=== PATIENT | male | born 1965 | race African-American/Black ===

== ENCOUNTER 2017-04-30 03:17 | Inpatient (IN) | payer MEDICAID ==
[2017-04-30] MEDS ORDERED: FUROSEMIDE INJ/PF 40 MG/4 ML SDV IV ONE (03:23)
--- NOTE | 2017-04-30 03:27 | ER Document Report ---
ED General - General Stated Complaint: DIFFICULTY BREATHING Time Seen by Provider: 04/30/17 03:23 Notes: Patient is a 52-year-old male with a history of cardiomyopathy and congestive heart failure. He presents with acute pulmonary edema. The medications he is on include spironolactone, lisinopril, carvedilol, Lasix, and aspirin. Dosages are not known at this time. No recent changes in his medications per his history. Patient said he woke up with difficulty breathing and felt gurgling and fluid in his chest. Therefore called EMS. I am survived patient was 80% on room air. They placed CPAP on him and given sublingual nitro and place an inch and a half of Nitropaste on him. This has helped his breathing some. He denies ever having chest pain tonight. He does have a defibrillator. He denies being shocked by his defibrillator. He denies history of cocaine use. He denies any other complaints at this time. He says he does not have any stents in his heart. Past Medical History - Social History Smoking Status: Unknown if Ever Smoked Frequency of alcohol use: None Drug Abuse: None Family History: Reviewed & Not Pertinent Review of Systems - Review of Systems Notes: My Normal Review Basic REVIEW OF SYSTEMS: CONSTITUTIONAL : Denies fever, chills, or sweats. Denies recent illness. EENT: Denies eye, ear, throat, or mouth pain or symptoms. Denies nasal or sinus congestion. CARDIOVASCULAR: Denies chest pain. RESPIRATORY: Difficulty breathing. GASTROINTESTINAL: Denies abdominal pain. Denies nausea, vomiting, or diarrhea. Denies constipation. Last BM: MUSCULOSKELETAL: Denies neck or back pain or joint pain or swelling. SKIN: Denies rash or skin lesions. NEUROLOGICAL: Denies altered mental status or loss of consciousness. Denies headache. Denies weakness or paralysis or loss of use of either side. Denies problems with gait or speech. Denies sensory or motor loss. ALL OTHER SYSTEMS REVIEWED AND NEGATIVE. Physical Exam - Vital signs Vitals: Resp Pulse Ox 30 H 96 04/30/17 03:26 04/30/17 03:26 - Notes Notes: General Appearance: Well nourished, alert, cooperative, mild to moderate acute distress, no obvious discomfort. Vitals: reviewed, See vital signs table. Head: no swelling or tenderness to the head Eyes: PERRL, EOMI, Conjuctiva clear Mouth: No decreasd moisture Lungs: No wheezing, basilar rales, No rhonci, No accessory muscle use, good air exchange bilaterally. Heart: Normal rate, Regular rythm, No murmur, no rub Abdomen: Normal BS, soft, No rigidity, No abdominal tenderness, No guarding, no rebound, no abdominal masses, no organomegaly Extremities: strength 5/5 in all extremities, good pulses in all extremities, no swelling or tenderness in the extremities, no edema. Skin: warm, dry, appropriate color, no rash Neuro: speech clear, oriented x 3, normal affect, responds appropriately to questions. Course - Re-evaluation Re-evalutation: 04/30/17 03:35 Patient has some EKG findings that look more consistent with that of LVH. Patient usually receives his care at [facility]. We will contact him to get old records including EKG, previous echo report, and most recent discharge summary. 04/30/17 04:22 She is feeling much improved. His lung kang have cleared on the BiPAP. Chest x-ray is not very impressive appearing. I do not suspect pneumonia that he has no white count illness, leukocytosis and being that his symptoms started suddenly. His lung auscultation presentation much more consistent with pulmonary edema. This is also more consistent with his history. We have requested records from [facility] which they have agreed to send. Patient clinically looks much improved. I does feel that he does require observation admission to eventually be weaned off the BiPAP and make sure he does not have recurrence of pulmonary edema. His initial troponin is 0.078 and is in the indeterminate range. He has no current chest pain at this time. I spoke with the hospitalist, Dr. Gordillo, who agrees to admit the patient. Dictation of this chart was performed using voice recognition software; therefore, there may be some unintended grammatical errors. - Vital Signs Vital signs: Temp Pulse Resp BP Pulse Ox 98.5 F 30 H 96 04/30/17 03:37 04/30/17 03:26 04/30/17 03:26 - Laboratory Result Diagrams: 04/30/17 03:23 04/30/17 03:23 Laboratory results interpreted by me: 04/30/17 04/30/17 04/30/17 03:23 03:23 03:23 RBC 3.70 L Hgb 11.3 L Hct 33.5 L RDW 15.7 H BUN 25 H Creatinine 1.71 H Est GFR ( Amer) 52 L Est GFR (Non-Af Amer) 43 L NT-Pro-B Natriuret Pep 85008 H - EKG Interpretation by Me Additional EKG results interpreted by me: 04/30/17 03:34 EKG is reviewed and interpreted by me. EKG shows normal sinus rhythm with rate of [address] segment elevation. She does have some large T- wave inversions and mild ST segment depression in her lateral and lateral precordial leads which most likely is result of LVH. I do not have an old EKG for comparison. [place] interval, QRS duration are within normal range. QTc interval is borderline. Discharge - Discharge Clinical Impression: Pulmonary edema Qualifiers: Chronicity: acute Qualified Code(s): J81.0 - Acute pulmonary edema CHF (congestive heart failure) Qualifiers: Heart failure type: unspecified Heart failure chronicity: acute on chronic Qualified Code(s): I50.9 - Heart failure, unspecified Condition: Stable Disposition: ADMITTED OBSERVATION Admitting Provider: Hospitalist Unit Admitted: Telemetry
[2017-04-30 03:46] LABS: ABSOLUTE BASOPHILS # (AUTO) 0.1 10^3/uL (0.0-0.2); ABSOLUTE EOSINOPHILS # (AUTO) 0.1 10^3/uL (0.0-0.6); ABSOLUTE LYMPHOCYTES (AUTO) 1.6 10^3/uL (0.5-4.7); ABSOLUTE MONOCYTES (AUTO) 0.5 10^3/uL (0.1-1.4); BASOPHILS % (AUTO) 0.8 % (0-2); EOSINOPHILS % (AUTO) 1.2 % (0-6); HEMATOCRIT 33.5 % (37.9-51.0); HEMOGLOBIN 11.3 g/dL (13.5-17.0); MEAN CORPUSCULAR HEMOGLOBIN 30.6 pg (27.0-33.4); MEAN CORPUSCULAR HGB CONC 33.7 g/dL (32.0-36.0); MEAN CORPUSCULAR VOLUME 91 fl (80-97); MONOCYTES % (AUTO) 6.6 % (3-13); PLATELET COUNT 208 10^3/uL (150-450); RED CELL DISTRIBUTION WIDTH 15.7 % (11.5-14.0); SEGMENTED NEUTROPHILS % (AUTO) 69.4 % (42-78); TOTAL CELLS COUNTED % (AUTO) 100 %; WHITE BLOOD COUNT 7.2 10^3/uL (4.0-10.5)
[2017-04-30 03:56] LABS: ALANINE AMINOTRANSFERASE 32 U/L (21-72); ALBUMIN 3.7 g/dL (3.5-5.0); ALKALINE PHOSPHATASE 69 U/L (38-126); ANION GAP 14 (5-19); ASPARTATE AMINO TRANSFERASE 25 U/L (17-59); BILIRUBIN,DIRECT 0.3 mg/dL (0.0-0.4); BLOOD UREA NITROGEN 25 mg/dL (7-20); CALCIUM 8.8 mg/dL (8.4-10.2); CARBON DIOXIDE 26 mmol/L (22-30); CHLORIDE 102 mmol/L (98-107); GLUCOSE 106 mg/dL (75-110); SODIUM 141.9 mmol/L (137-145); TOTAL PROTEIN 6.7 g/dL (6.3-8.2)
[2017-04-30 04:10] LABS: TROPONIN I 0.078 ng/mL
[2017-04-30] MEDS ORDERED: ACETAMINOPHEN 325 MG TABLET PO PRN (04:27)
[2017-04-30] MEDS ORDERED: PROMETHAZINE HCL INJ 25 MG/1 ML VIAL IV PRN ×2 (04:27→13:30)
--- NOTE | 2017-04-30 04:44 | RADIOLOGY REPORT (SQ) ---
EXAM DESCRIPTION: CHEST SINGLE VIEW CLINICAL HISTORY: difficulty breathing COMPARISON: None. FINDINGS: Single frontal view of the chest. Left-sided pacemaker. Cardiomegaly. Tortuosity of thoracic aorta. Right basilar airspace opacity. No pneumothorax or pleural effusion. No displaced rib fractures identified. Upper abdominal soft tissues are unremarkable. IMPRESSION: 1. Bibasilar airspace opacity compatible with pneumonia. 2. Cardiomegaly.
[2017-04-30] MEDS ORDERED: LISINOPRIL 10 MG TABLET PO SCH (05:15)
--- NOTE | 2017-04-30 05:50 | PDOC H&P ---
History of Present Illness Patient complains of: Worsening shortness of breath since 11:42 PM. History of Present Illness: BORIS PEREZ is a 52 year old male with history of dilated nonischemic cardiomyopathy/chronic systolic CHF (EF < 35%, post ICD placement on 11/23/2015 @ [facility]) and essential hypertension was admitted with above-mentioned complaint. The patient denies any chest pain, fever, chills or any cough. He also denies any leg swelling or pillow orthopnea and his excercise tolerance used to be unlimited. But in the last few hours, he had PND and his exercise tolerance was limited to few steps. He apparently ran out of his medications 2 days ago. And according to the ED note, EMS reported that his oxygen saturation was down to 80% on room air. He received 1 sublingual nitro and an inch and a half of Nitropaste. He was also placed on CPAP en route to the hospital. In the ED, his temperature was 98.5, heart rate 86, respiratory rate 30, blood pressure not documented, saturating 96% on BIPAP. His initial troponin was 0.078 [place] [address]. His WBC was 7.2 and his hemoglobin was 11.3. His chest x-ray report was read as bibasilar pneumonia and cardiomegaly. He received 40 mg IV Lasix 1 and he continued to be on BIPAP. Past Medical History Cardiac Medical History: Reports: Congestive Heart Failure, Hypertension, Other - Nonischemic cardiomyopathy, post ICD on 11/23/2015. Psychiatric Medical History: Reports: Other - Current abuse (smoking) Past Surgical History Past Surgical History: Reports: Internal Defibrillator - On 11/22/2025 Social History Smoking Status: Unknown if Ever Smoked Cigarettes Packs Per Day: 0 - He used to smoke 1 pack a day over a week for the first 3-4 years. Frequency of Alcohol Use: Occasional Hx Recreational Drug Use: No - Uses to smoke Coke. Family History Parental Family History Reviewed: Yes - Mother: ID, father and sister: Diabetes. Children Family History Reviewed: No Sibling(s) Family History Reviewed.: Yes Review of Systems ROS unobtainable: Other - Pertinent positives and negatives as detailed in the HPI. At the patient denies any nausea vomiting, abdominal pain, diarrhea or constipation or any urinary symptoms. He also denies any focal weakness or numbness. Physical Exam Vital Signs: Temp Pulse Resp BP Pulse Ox 98.5 F 30 H 96 04/30/17 03:37 04/30/17 03:26 04/30/17 03:26 General appearance: PRESENT: no acute distress, well-developed Head exam: PRESENT: atraumatic, normocephalic Eye exam: PRESENT: conjunctiva pink, PERRLA. ABSENT: scleral icterus Mouth exam: PRESENT: other - The patient has a BiPAP mask on. Neck exam: PRESENT: full ROM, JVD Respiratory exam: PRESENT: decreased breath sounds, rales. ABSENT: rhonchi, wheezes Cardiovascular exam: PRESENT: diastolic murmur, RRR - S1 S2 muffled Pulses: PRESENT: normal dorsalis pedis pul GI/Abdominal exam: PRESENT: normal bowel sounds, soft. ABSENT: distended, guarding, rebound, tenderness Rectal exam: PRESENT: deferred Extremities exam: PRESENT: full ROM. ABSENT: pedal edema Neurological exam: PRESENT: alert, awake, oriented to person, oriented to place , oriented to time, oriented to situation. ABSENT: motor sensory deficit Skin exam: PRESENT: dry, intact, warm. ABSENT: cyanosis, rash Results Laboratory Results: 04/30/17 03:23 04/30/17 03:23 04/30/17 04/30/17 03:23 03:23 WBC 7.2 RBC 3.70 L Hgb 11.3 L Hct 33.5 L MCV 91 MCH 30.6 MCHC 33.7 RDW 15.7 H Plt Count 208 Seg Neutrophils % 69.4 Lymphocytes % 22.0 Monocytes % 6.6 Eosinophils % 1.2 Basophils % 0.8 Absolute Neutrophils 5.0 Absolute Lymphocytes 1.6 Absolute Monocytes 0.5 Absolute Eosinophils 0.1 Absolute Basophils 0.1 Sodium 141.9 Potassium 4.0 Chloride 102 Carbon Dioxide 26 Anion Gap 14 BUN 25 H Creatinine 1.71 H Est GFR ( Amer) 52 L Est GFR (Non-Af Amer) 43 L Glucose 106 Calcium 8.8 Total Bilirubin 1.0 AST 25 ALT 32 Alkaline Phosphatase 69 Total Protein 6.7 Albumin 3.7 04/30/17 03:23 Troponin I 0.078 NT-Pro-B Natriuret Pep 36794 H EKG Comments: Twelve-lead EKG sinus rhythm, ventricular rate 85, [place] 0, QTC prolongation, LVH , acute changes. 3. 12-lead EKG done on 11/23/2015 at an [facility], sinus rhythm, ventricular rate 55, axis -20 LVH, no acute changes. Assessment & Plan - Diagnosis (1) Acute on chronic diastolic CHF (congestive heart failure), NYHA class 4 Is this a current diagnosis for this admission?: Yes Plan: Due to noncompliance to medications most likely. Chest x-ray reviewed. Will continue to cycle cardiac enzymes and check an echocardiogram. Will also continue 40 mg IV Lasix twice daily and strict I's and O's. Of note, according to his medical records faxed over from [facility], the patient was hospitalized there in August 2015. His echocardiogram at that time showed severely dilated left ventricle with ejection fraction less than 15%, moderate concentric left ventricular hypertension and mild MR and AR. He had a right and left heart caths which showed dilated left ventricle with severe global hypokinesis and ejection fraction of less than 20%. He has been compliant with his medications and follow-up appointments. His bulker is Dr. Ambriz. Given the fact that his ejection fraction was still less than 35% after optimizing his medications, he underwent a an elective ICD placement on . (2) Chronic kidney disease, stage 3 (moderate) Is this a current diagnosis for this admission?: No Plan: per previous records. We will continue to monitor kidney function and urine output while on diuretics. (3) Essential hypertension Is this a current diagnosis for this admission?: No Plan: Will resume his blood pressure medications except Lisinopril for now. Will continue to monitor his kidney function. (4) Infiltrate of lung present on imaging of chest Is this a current diagnosis for this admission?: Yes Plan: His chest x-ray was read as showing basilar pneumonia. However, this is not supported by the patient's clinical presentation. We will repeat his chest x- ray after diuresis. - Time Time Spent: 50 to 70 Minutes Anticipated discharge: Home - Inpatient Certification Based on my medical assessment, after consideration of the patient's comorbidities, presenting symptoms, or acuity I expect that the services needed warrant INPATIENT care.: Yes I certify that my determination is in accordance with my understanding of Medicare's requirements for reasonable and necessary INPATIENT services [42 CFR 412.3e].: Yes
[2017-04-30] MEDS: HEPARIN SOD (PORCINE) 5,000 UNIT/ML 1 ML SYRINGE SUBCUT SCH ×3 (06:42→22:05)
[2017-04-30] MEDS: IPRATROPIUM/ALBUTEROL 0.5-2.5 MG/3 ML AMPUL NEB SCH ×3 (07:39→20:21)
--- NOTE | 2017-04-30 07:47 | EKG REPORT ---
SEVERITY:- ABNORMAL ECG - SINUS RHYTHM PROBABLE LEFT ATRIAL ABNORMALITY LVH WITH SECONDARY REPOLARIZATION ABNORMALITY ABNORMAL T, PROBABLE ISCHEMIA, LATERAL LEADS ANTERIOR ST ELEVATION, PROBABLY DUE TO LVH BORDERLINE PROLONGED QT INTERVAL : Confirmed by: Robbie Keys MD 30-Apr-2017 07:47:12
[2017-04-30] MEDS: CARVEDILOL 12.5 MG TABLET PO SCH ×2 (09:08→22:04)
[2017-04-30] MEDS: SPIRONOLACTONE 25 MG TABLET PO SCH (09:09)
[2017-04-30] MEDS: FUROSEMIDE INJ/PF 40 MG/4 ML SDV IV SCH ×2 (09:09→22:05)
[2017-04-30] MEDS ORDERED: ASPIRIN 81 MG TABLET, ENT COATED PO SCH (10:00)
[2017-04-30] MEDS ORDERED: NITROGLYCERIN 2% OINTMENT 1 GM PACKET TP ONE (13:30)
--- NOTE | 2017-04-30 18:57 | Progress Note ---
Provider Note Provider Note: Patient admitted this am. He was seen and evaluated whilst still in ED by me. BP noted to be high. Nitropaste added to regimen. Will follow
[2017-04-30] MEDS: NITROGLYCERIN 2% OINTMENT 1 GM PACKET TP SCH (19:09)
[2017-04-30] MEDS: ACETAMINOPHEN 325 MG TABLET PO PRN (22:05)
[2017-05-01] MEDS: NITROGLYCERIN 2% OINTMENT 1 GM PACKET TP SCH ×4 (00:14→17:23)
[2017-05-01] MEDS: IPRATROPIUM/ALBUTEROL 0.5-2.5 MG/3 ML AMPUL NEB SCH ×4 (02:10→20:02)
[2017-05-01] MEDS: HEPARIN SOD (PORCINE) 5,000 UNIT/ML 1 ML SYRINGE SUBCUT SCH ×3 (05:33→22:11)
[2017-05-01 06:51] LABS: HEMATOCRIT 30.9 % (37.9-51.0); HEMOGLOBIN 10.5 g/dL (13.5-17.0); MEAN CORPUSCULAR HEMOGLOBIN 30.5 pg (27.0-33.4); MEAN CORPUSCULAR HGB CONC 33.9 g/dL (32.0-36.0); MEAN CORPUSCULAR VOLUME 90 fl (80-97); PLATELET COUNT 168 10^3/uL (150-450); RED BLOOD COUNT 3.44 10^6/uL (4.35-5.55); RED CELL DISTRIBUTION WIDTH 15.5 % (11.5-14.0)
[2017-05-01 07:04] LABS: ANION GAP 8 (5-19); BLOOD UREA NITROGEN 26 mg/dL (7-20); CARBON DIOXIDE 28 mmol/L (22-30); CHLORIDE 105 mmol/L (98-107); GLUCOSE 105 mg/dL (75-110); POTASSIUM 3.7 mmol/L (3.6-5.0); SODIUM 140.6 mmol/L (137-145)
--- NOTE | 2017-05-01 08:45 | RADIOLOGY REPORT (SQ) ---
EXAM DESCRIPTION: CHEST PA/LAT COMPLETED DATE/TIME: 05/01/2017 7:27 am REASON FOR STUDY: shortness of breath COMPARISON: AP chest 04/30/2017 EXAM PARAMETERS: NUMBER OF VIEWS: two views TECHNIQUE: Digital Frontal and Lateral radiographic views of the chest acquired. RADIATION DOSE: NA LIMITATIONS: none FINDINGS: LUNGS AND PLEURA: There is pulmonary vascular prominence with mild right perihilar airspac e disease worrisome for asymmetric pulmonary edema versus pneumonia. Trace fluid in the fissures. Left lung well inflated and clear. No right or left pneumothorax MEDIASTINUM AND HILAR STRUCTURES: No masses or contour abnormalities. HEART AND VASCULAR STRUCTURES: Moderate cardiomegaly. BONES: No acute findings. HARDWARE: Left single lead pacemaker OTHER: No other significant finding. IMPRESSION: Mild pulmonary vascular prominence with right perihilar airspace disease, asymmetric ruby ma versus pneumonia Cardiomegaly with single lead pacemaker TECHNICAL DOCUMENTATION: JOB ID: [id number] [employer]- All Rights Reserved Reading location - IP/workstation name: [email or web address]
[2017-05-01] MEDS: FUROSEMIDE INJ/PF 40 MG/4 ML SDV IV SCH (09:22)
[2017-05-01] MEDS: CARVEDILOL 12.5 MG TABLET PO SCH ×2 (09:22→22:10)
[2017-05-01] MEDS: ASPIRIN 81 MG TABLET, ENT COATED PO SCH (09:22)
[2017-05-01] MEDS: SPIRONOLACTONE 25 MG TABLET PO SCH (09:22)
--- NOTE | 2017-05-01 15:29 | PDOC PROGRESS REPORT ---
Subjective Progress Note for:: 05/01/17 Subjective:: Difficulty breathing and shortness of breath Reason For Visit: CHF EXACERBATION Physical Exam Vital Signs: Temp Pulse Resp BP Pulse Ox 97.9 F 73 16 131/98 H 98 05/01/17 07:31 05/01/17 14:00 05/01/17 13:57 05/01/17 07:31 05/01/17 13:57 Intake & Output 04/30/17 05/01/17 05/02/17 06:59 06:59 06:59 Intake Total 1384 Output Total 600 Balance 784 Weight 75.75 kg 75.75 kg General appearance: PRESENT: no acute distress, cooperative Head exam: PRESENT: atraumatic Mouth exam: PRESENT: moist, tongue midline Neck exam: ABSENT: carotid bruit, JVD, lymphadenopathy, thyromegaly Respiratory exam: PRESENT: crackles, decreased breath sounds, rhonchi - basal. ABSENT: accessory muscle use, rales, wheezes Cardiovascular exam: PRESENT: RRR. ABSENT: diastolic murmur, rubs, systolic murmur Pulses: PRESENT: normal dorsalis pedis pul GI/Abdominal exam: PRESENT: normal bowel sounds, soft. ABSENT: distended, guarding, mass, organolmegaly, rebound, tenderness Rectal exam: PRESENT: deferred Extremities exam: ABSENT: pedal edema Neurological exam: PRESENT: alert, awake, oriented to person, oriented to place , oriented to time, oriented to situation, CN II-XII grossly intact Psychiatric exam: PRESENT: appropriate affect, normal mood. ABSENT: homicidal ideation, suicidal ideation Results Laboratory Results: 05/01/17 05:55 05/01/17 05:55 05/01/17 05/01/17 05:55 05:55 WBC 4.0 RBC 3.44 L Hgb 10.5 L Hct 30.9 L MCV 90 MCH 30.5 MCHC 33.9 RDW 15.5 H Plt Count 168 Sodium 140.6 Potassium 3.7 Chloride 105 Carbon Dioxide 28 Anion Gap 8 BUN 26 H Creatinine 2.02 H Est GFR ( Amer) 43 L Est GFR (Non-Af Amer) 35 L Glucose 105 Calcium 9.0 Magnesium 1.9 04/30/17 04/30/17 04/30/17 10:21 16:20 21:35 Troponin I 0.093 0.072 0.074 Impressions: Chest X-Ray 05/01/17 00:00 IMPRESSION: Mild pulmonary vascular prominence with right perihilar airspace disease, asymmetric edema versus pneumonia Cardiomegaly with single lead pacemaker Assessment & Plan - Diagnosis (1) Acute on chronic diastolic CHF (congestive heart failure), NYHA class 4 Is this a current diagnosis for this admission?: Yes Plan: Patient continues on nitroglycerin as well as carvedilol Lasix and spironolactone. Echocardiogram has been ordered to evaluate LV function and this is still pending. (2) Essential hypertension Is this a current diagnosis for this admission?: Yes Plan: Blood pressure is still poorly controlled and so we will increase Coreg and continue to monitor (3) Pulmonary edema Qualifiers: Chronicity: acute Qualified Code(s): J81.0 - Acute pulmonary edema Is this a current diagnosis for this admission?: Yes Plan: This is secondary to acute decompensation of CHF (4) Chronic kidney disease, stage 3 (moderate) Is this a current diagnosis for this admission?: Yes Plan: Patient has underlying chronic kidney disease likely secondary to hypertensive nephropathy (5) Acute kidney injury Is this a current diagnosis for this admission?: Yes Plan: Likely secondary to diuresis. I will skip tonight's Lasix dose and reevaluate in a.m. - Time Time Spent with patient: 15-24 minutes Medications reviewed and adjusted accordingly: Yes Anticipated discharge: Home Within: within 48 hours - Inpatient Certification Based on my medical assessment, after consideration of the patient's comorbidities, presenting symptoms, or acuity I expect that the services needed warrant INPATIENT care.: Yes I certify that my determination is in accordance with my understanding of Medicare's requirements for reasonable and necessary INPATIENT services [42 CFR 412.3e].: Yes Medical Necessity: Risk of Complication if Not Cared For in Hospital, Other - Need for IV diuresis
[2017-05-01] MEDS: ACETAMINOPHEN 325 MG TABLET PO PRN (17:29)
[2017-05-02] MEDS: NITROGLYCERIN 2% OINTMENT 1 GM PACKET TP SCH ×4 (00:08→18:29)
[2017-05-02] MEDS: IPRATROPIUM/ALBUTEROL 0.5-2.5 MG/3 ML AMPUL NEB SCH ×4 (02:09→20:13)
[2017-05-02] MEDS: HEPARIN SOD (PORCINE) 5,000 UNIT/ML 1 ML SYRINGE SUBCUT SCH ×3 (05:50→21:52)
[2017-05-02 06:44] LABS: ANION GAP 8 (5-19); BLOOD UREA NITROGEN 26 mg/dL (7-20); CARBON DIOXIDE 28 mmol/L (22-30); CHLORIDE 105 mmol/L (98-107); GLUCOSE 98 mg/dL (75-110); POTASSIUM 3.8 mmol/L (3.6-5.0); SODIUM 140.5 mmol/L (137-145)
[2017-05-02] MEDS: ASPIRIN 81 MG TABLET, ENT COATED PO SCH (10:29)
[2017-05-02] MEDS: CARVEDILOL 12.5 MG TABLET PO SCH ×2 (10:30→21:52)
[2017-05-02] MEDS: SPIRONOLACTONE 25 MG TABLET PO SCH (10:30)
--- NOTE | 2017-05-02 13:59 | PDOC PROGRESS REPORT ---
Subjective Progress Note for:: 05/02/17 Subjective:: Difficulty breathing and shortness of breath which is improving. Denies any leg swelling or chest pain. Patient had missed a couple of days worth of his medications according to him and he has been advised on the need to be always compliant with his medications Reason For Visit: CHF EXACERBATION Physical Exam Vital Signs: Temp Pulse Resp BP Pulse Ox 97.5 F 79 18 120/82 98 05/02/17 12:00 05/02/17 12:00 05/02/17 12:00 05/02/17 12:00 05/02/17 12:00 Intake & Output 05/01/17 05/02/17 05/03/17 06:59 06:59 06:59 Intake Total 1384 1800 Output Total 600 Balance 784 1800 Weight 75.75 kg 73.8 kg General appearance: PRESENT: no acute distress Head exam: PRESENT: atraumatic Ear exam: PRESENT: normal external ear exam Mouth exam: PRESENT: moist, tongue midline Neck exam: ABSENT: carotid bruit, JVD, lymphadenopathy, thyromegaly Respiratory exam: PRESENT: crackles - Bibasilar, rhonchi - Basal, unlabored. ABSENT: rales, retraction, tachypnea, wheezes Cardiovascular exam: PRESENT: RRR. ABSENT: diastolic murmur, rubs, systolic murmur Pulses: PRESENT: normal dorsalis pedis pul GI/Abdominal exam: PRESENT: normal bowel sounds, soft. ABSENT: distended, guarding, mass, organolmegaly, rebound, tenderness Rectal exam: PRESENT: deferred Neurological exam: PRESENT: alert, awake, oriented to person, oriented to place , oriented to time, oriented to situation, CN II-XII grossly intact. ABSENT: motor sensory deficit Results Laboratory Results: 05/01/17 05:55 05/02/17 05:59 05/02/17 05:59 Sodium 140.5 Potassium 3.8 Chloride 105 Carbon Dioxide 28 Anion Gap 8 BUN 26 H Creatinine 1.78 H Est GFR ( Amer) 49 L Est GFR (Non-Af Amer) 41 L Glucose 98 Calcium 9.0 04/30/17 04/30/17 04/30/17 10:21 16:20 21:35 Troponin I 0.093 0.072 0.074 NT-Pro-B Natriuret Pep 05/02/17 05:59 Troponin I NT-Pro-B Natriuret Pep 4300 H Impressions: Chest X-Ray 05/01/17 00:00 IMPRESSION: Mild pulmonary vascular prominence with right perihilar airspace disease, asymmetric edema versus pneumonia Cardiomegaly with single lead pacemaker Assessment & Plan - Diagnosis (1) Acute on chronic diastolic CHF (congestive heart failure), NYHA class 4 Is this a current diagnosis for this admission?: Yes Plan: Patient continues on nitroglycerin as well as carvedilol Lasix and spironolactone. I had increased the dose of carvedilol yesterday and this seems to have improved his blood pressure. He is still on nitroglycerin and lisinopril is still on hold due to his kidney function Echocardiogram results is still pending. (2) Essential hypertension Is this a current diagnosis for this admission?: Yes Plan: Blood pressure is still poorly controlled and so we will increase Coreg. We will continue to hold lisinopril for now and this can be restarted as outpatient as he still has elevated creatinine and I really do not have a baseline for him (3) Pulmonary edema Qualifiers: Chronicity: acute Qualified Code(s): J81.0 - Acute pulmonary edema Is this a current diagnosis for this admission?: Yes Plan: This is secondary to acute decompensation of CHF (4) Chronic kidney disease, stage 3 (moderate) Is this a current diagnosis for this admission?: Yes Plan: Patient has underlying chronic kidney disease likely secondary to hypertensive nephropathy his creatinine appears to be at baseline (5) Acute kidney injury Is this a current diagnosis for this admission?: Yes Plan: Likely secondary to diuresis. I will restart Lasix at 40 twice daily - Time Time Spent with patient: 15-24 minutes Anticipated discharge: Home Within: within 24 hours - Inpatient Certification Medical Necessity: Need For Continuous Telemetry Monitoring, Risk of Complication if Not Cared For in Hospital
[2017-05-02] MEDS: FUROSEMIDE INJ/PF 40 MG/4 ML SDV IV SCH (21:52)
[2017-05-03] MEDS: NITROGLYCERIN 2% OINTMENT 1 GM PACKET TP SCH ×2 (01:30→06:02)
[2017-05-03] MEDS: IPRATROPIUM/ALBUTEROL 0.5-2.5 MG/3 ML AMPUL NEB SCH ×3 (01:55→14:16)
[2017-05-03] MEDS: HEPARIN SOD (PORCINE) 5,000 UNIT/ML 1 ML SYRINGE SUBCUT SCH (06:02)
[2017-05-03 06:04] LABS: ANION GAP 8 (5-19); BLOOD UREA NITROGEN 24 mg/dL (7-20); CALCIUM 9.3 mg/dL (8.4-10.2); CARBON DIOXIDE 28 mmol/L (22-30); CHLORIDE 104 mmol/L (98-107); GLUCOSE 96 mg/dL (75-110); SODIUM 139.8 mmol/L (137-145)
[2017-05-03] MEDS: FUROSEMIDE INJ/PF 40 MG/4 ML SDV IV SCH (11:21)
[2017-05-03] MEDS: SPIRONOLACTONE 25 MG TABLET PO SCH (11:22)
[2017-05-03] MEDS: CARVEDILOL 12.5 MG TABLET PO SCH (11:22)
[2017-05-03] MEDS: ASPIRIN 81 MG TABLET, ENT COATED PO SCH (11:22)
--- NOTE | 2017-05-03 12:17 | Progress Note ---
Provider Note Provider Note: Minerva Maldonado was caring for Alfie Vazquez at [facility] from 05/01 through 05/03/2017
--- NOTE | 2017-05-03 12:33 | PDOC DISCHARGE SUMMARY ---
General - Admit/Disc Date/PCP Admission Date/Primary Care Provider: 04/30/17 04:27 Robbie Keys Discharge Date: 05/03/17 - Discharge Diagnosis (1) Acute on chronic diastolic CHF (congestive heart failure), NYHA class 4 Is this a current diagnosis for this admission?: Yes (2) Essential hypertension Is this a current diagnosis for this admission?: Yes (3) Pulmonary edema Is this a current diagnosis for this admission?: Yes (4) Chronic kidney disease, stage 3 (moderate) Is this a current diagnosis for this admission?: Yes (5) Acute kidney injury Is this a current diagnosis for this admission?: Yes - Additional Information Resuscitation Status: Full Code Discharge Diet: Cardiac Discharge Activity: Activity As Tolerated, Balance Activity w/Rest, Weigh Daily Prescriptions: Carvedilol [Coreg 12.5 mg Tablet] 25 mg PO Q12 #60 tablet Furosemide [Lasix 40 mg Tablet] 40 mg PO DAILY #30 tablet Lisinopril [Prinivil] 20 mg PO DAILY #30 tablet Spironolactone [Aldactone 25 mg Tablet] 25 mg PO DAILY #30 tablet Home Medications: Hydrocodone/Acetaminophen [[place] 5-325 mg Tablet] 1 tab PO Q4HP PRN 04/30/17 Aspirin [Ecotrin 81 mg EC Tablet] 81 mg PO DAILY tabec 05/03/17 Carvedilol [Coreg 12.5 mg Tablet] 25 mg PO Q12 #60 tablet 05/03/17 Furosemide [Lasix 40 mg Tablet] 40 mg PO DAILY #30 tablet 05/03/17 Lisinopril [Prinivil] 20 mg PO DAILY #30 tablet 05/03/17 Spironolactone [Aldactone 25 mg Tablet] 25 mg PO DAILY #30 tablet 05/03/17 History of Present Illness Patient complains of: This 52-year-old gentleman with history of dilated nonischemic cardiomyopathy with ejection fraction of less than 35% status post ICD placement presented to this hospital with progressive dyspnea and shortness of breath. He apparently had missed a few days of his medication. History of Present Illness: BORIS PEREZ is a 52 year old male Hospital Course Hospital Course: He was found to be in acute pulmonary edema on presentation and so was started on diuresis. He has responded very well to intravenous Lasix as well as nitro paste and he has diuresed pretty well. He initially needed BiPAP but patient's oxygenation improved and he has been on room air with stable respiration. His blood pressure was elevated but this has since improved. Initial BNP was 10, 800 and this is currently down to 4800. He has been advised on the need to be compliant with his medications. Patient has remained hemodynamically stable and at this time it is felt that he can be discharged home in stable condition. He has been educated on heart failure practices and management . His lisinopril was held on admission but this is to be restarted on discharge and I will advise his supervisor of communications to follow-up with his kidney function. His Coreg was increased. Although there was a question of infiltrate on the chest x -ray however this is felt more to be due to pulmonary vascular congestion as there was no clinical evidence of pneumonia. Physical Exam Vital Signs: Temp Pulse Resp BP Pulse Ox 97.6 F 65 16 114/74 94 05/03/17 11:42 05/03/17 11:42 05/03/17 11:42 05/03/17 11:42 05/03/17 11:42 Intake & Output 05/02/17 05/03/17 05/04/17 06:59 06:59 06:59 Intake Total 1800 2345 Output Total 1350 Balance 1800 995 Weight 73.8 kg 73.1 kg General appearance: PRESENT: no acute distress Head exam: PRESENT: atraumatic Eye exam: PRESENT: conjunctiva pink, EOMI, PERRLA. ABSENT: scleral icterus Ear exam: PRESENT: normal external ear exam Respiratory exam: PRESENT: clear to auscultation jenn. ABSENT: rales, rhonchi, wheezes Cardiovascular exam: PRESENT: RRR, other - AICD implanted on chest wall. ABSENT : diastolic murmur, rubs, systolic murmur Pulses: PRESENT: normal dorsalis pedis pul GI/Abdominal exam: PRESENT: normal bowel sounds, soft. ABSENT: distended, guarding, mass, organolmegaly, rebound, tenderness Rectal exam: PRESENT: deferred Extremities exam: ABSENT: calf tenderness Musculoskeletal exam: PRESENT: ambulatory, full ROM, normal inspection. ABSENT : tenderness Neurological exam: PRESENT: alert, awake, oriented to person, oriented to place , oriented to time, oriented to situation, CN II-XII grossly intact. ABSENT: motor sensory deficit Results Laboratory Results: 05/01/17 05:55 05/03/17 05:11 05/03/17 05:11 Sodium 139.8 Potassium 4.0 Chloride 104 Carbon Dioxide 28 Anion Gap 8 BUN 24 H Creatinine 1.77 H Est GFR ( Amer) 50 L Est GFR (Non-Af Amer) 41 L Glucose 96 Calcium 9.3 04/30/17 04/30/17 04/30/17 10:21 16:20 21:35 Troponin I 0.093 0.072 0.074 NT-Pro-B Natriuret Pep 05/02/17 05/03/17 05:59 05:11 Troponin I NT-Pro-B Natriuret Pep 4300 H 4780 H Impressions: Chest X-Ray 05/01/17 00:00 IMPRESSION: Mild pulmonary vascular prominence with right perihilar airspace disease, asymmetric edema versus pneumonia Cardiomegaly with single lead pacemaker Qualifiers - * PATEINT BEING DISCHARGED WITH ANY OF THE FOLLOWING DIAGNOSIS?: Heart Failure HF Pt being discharged on ACEI for LVEF less than 40%?: Yes HF Pt being discharged on ARBS for LVEF less than 40%?: No Reason(s) for not prescribing ARBS:: Not indicated HF Pt with Afib discharged with Warfarin?: No Reason(s) for not prescribing Warfarin:: Not indicated HF Pt discharged on evidence-based Beta Salas:: Yes Plan Time Spent: Greater than 30 Minutes
[2017-05-03 13:48] VITALS: BP 129/85
== END 2017-05-03 15:00 | disposition home or self-care (01) | DRG 292 ==
LOC: ER 03:17 → EH 04:27 → OBSVTOIN 04:27 → 4S 16:42
PROVIDERS: ADMIT Internal Medicine Geriatric Medicine; ATTEND Internal Medicine Geriatric Medicine
DX: I50.23 Acute on chronic systolic (congestive) heart failure (principal); I42.9 Cardiomyopathy, unspecified; N17.9 Acute kidney failure, unspecified; I13.10 Hypertensive heart and chronic kidney disease without heart failure, with stage 1 through stage 4 chronic kidney disease, or unspecified chronic kidney disease; N18.3 Chronic kidney disease, stage 3 (moderate); F17.210 Nicotine dependence, cigarettes, uncomplicated; Z95.810 Presence of automatic (implantable) cardiac defibrillator; Z91.14 Patient's other noncompliance with medication regimen
CPT/HCPCS: 36415; 71045; 71046; 80048; 80053; 83735; 83880; 84484; 85025; 85027; 93005; 93010; 93306; 94640; 94660; 96372; 96374; 96376; 99285; J1644; J1940; J7620

== ENCOUNTER 2017-07-02 10:55 | Emergency (ER) | payer MEDICAID ==
[2017-07-02] MEDS ORDERED: ASPIRIN 325 MG TABLET PO ONE (11:48)
--- NOTE | 2017-07-02 11:49 | ER Document Report ---
ED Medical Screen (RME) - General Chief Complaint: Shortness Of Breath Stated Complaint: STOMACH PAIN, CONGESTION Time Seen by Provider: 07/02/17 11:47 Notes: Patient presents stating he has had a one-day history of shortness of breath. No cough or cold symptoms. He does have a history of CHF. He also states that he is noticed that the area around his pacemaker is becoming "sore". He states he has had this in place since 2016. No significant changes are appreciated on EKG compared to old EKG. He states he cannot lay flat currently without being short of breath. TRAVEL OUTSIDE OF THE [place] IN LAST 30 DAYS: No - Related Data Allergies/Adverse Reactions: No Known Allergies Allergy (Verified 07/02/17 11:39) Past Medical History - Social History Chew tobacco use (# tins/day): No Frequency of alcohol use: None Drug Abuse: None - Past Medical History Cardiac Medical History: Reports: Hx Congestive Heart Failure, Hx Heart Attack, Hx Hypertension Renal/ Medical History: Denies: Hx Peritoneal Dialysis Psychiatric Medical History: Denies: Hx Depression Past Surgical History: Reports: Hx Internal Defibrillator - On 11/22/2025 - Immunizations History of Influenza Vaccine for 12/2016 - 05/2017 Season: Refused Physical Exam - Vital signs Vitals: Temp Pulse Resp BP Pulse Ox 98.8 F 76 20 146/98 H 96 07/02/17 11:25 07/02/17 11:25 07/02/17 11:25 07/02/17 11:25 07/02/17 11:25 Course - Vital Signs Vital signs: Temp Pulse Resp BP Pulse Ox 98.8 F 76 20 146/98 H 96 07/02/17 11:25 07/02/17 11:25 07/02/17 11:25 07/02/17 11:25 07/02/17 11:25
[2017-07-02 12:23] LABS: ABSOLUTE LYMPHOCYTES (AUTO) 1.4 10^3/uL (0.5-4.7); ABSOLUTE MONOCYTES (AUTO) 0.6 10^3/uL (0.1-1.4); ABSOLUTE NEUT (AUTO) 4.8 10^3/uL (1.7-8.2); BASOPHILS % (AUTO) 0.4 % (0-2); EOSINOPHILS % (AUTO) 0.6 % (0-6); HEMATOCRIT 31.8 % (37.9-51.0); HEMOGLOBIN 10.8 g/dL (13.5-17.0); LYMPHOCYTES % (AUTO) 20.2 % (13-45); MEAN CORPUSCULAR HEMOGLOBIN 29.9 pg (27.0-33.4); MEAN CORPUSCULAR HGB CONC 33.8 g/dL (32.0-36.0); MEAN CORPUSCULAR VOLUME 88 fl (80-97); MONOCYTES % (AUTO) 8.3 % (3-13); PLATELET COUNT 335 10^3/uL (150-450); RED CELL DISTRIBUTION WIDTH 14.2 % (11.5-14.0); SEGMENTED NEUTROPHILS % (AUTO) 70.5 % (42-78); TOTAL CELLS COUNTED % (AUTO) 100 %; WHITE BLOOD COUNT 6.8 10^3/uL (4.0-10.5)
--- NOTE | 2017-07-02 12:37 | RADIOLOGY REPORT (SQ) ---
EXAM DESCRIPTION: CHEST 2 VIEWS COMPLETED DATE/TIME: 07/02/2017 12:24 pm REASON FOR STUDY: sob COMPARISON: Two-view chest 05/01/2017 EXAM PARAMETERS: NUMBER OF VIEWS: two views TECHNIQUE: Digital Frontal and Lateral radiographic views of the chest acquired. RADIATION DOSE: NA LIMITATIONS: none FINDINGS: LUNGS AND PLEURA: No opacities, masses or pneumothorax. No pleural effusion. MEDIASTINUM AND HILAR STRUCTURES: No masses or contour abnormalities. HEART AND VASCULAR STRUCTURES: Borderline cardiomegaly. Left-sided single lead pacemaker. BONES: No acute findings. HARDWARE: Left-sided single lead pacemaker OTHER: No other significant finding. IMPRESSION: No acute findings. Stable borderline cardiomegaly and left-sided single lead pacemaker TECHNICAL DOCUMENTATION: JOB ID: [id number] [employer]- All Rights Reserved Reading location - IP/workstation name: [email or web address]
[2017-07-02 12:39] LABS: ALANINE AMINOTRANSFERASE 33 U/L (21-72); ALBUMIN 3.4 g/dL (3.5-5.0); ALKALINE PHOSPHATASE 67 U/L (38-126); ANION GAP 7 (5-19); ASPARTATE AMINO TRANSFERASE 25 U/L (17-59); BILIRUBIN,DIRECT 0.2 mg/dL (0.0-0.4); BILIRUBIN,TOTAL 0.5 mg/dL (0.2-1.3); BLOOD UREA NITROGEN 26 mg/dL (7-20); CALCIUM 9.5 mg/dL (8.4-10.2); CARBON DIOXIDE 32 mmol/L (22-30); CHLORIDE 108 mmol/L (98-107); GLUCOSE 106 mg/dL (75-110); POTASSIUM 4.5 mmol/L (3.6-5.0); SODIUM 146.8 mmol/L (137-145); TOTAL PROTEIN 6.5 g/dL (6.3-8.2)
[2017-07-02 12:53] LABS: TROPONIN I 0.063 ng/mL
--- NOTE | 2017-07-02 12:58 | EKG REPORT ---
SEVERITY:- ABNORMAL ECG - SINUS RHYTHM MULTIPLE VENTRICULAR PREMATURE COMPLEXES LVH WITH SECONDARY REPOLARIZATION ABNORMALITY ABNORMAL T, PROBABLE ISCHEMIA, LATERAL LEADS BORDERLINE PROLONGED QT INTERVAL : Confirmed by: Raul Sherwood 02-Jul-2017 12:57:37
[2017-07-02] MEDS ORDERED: FUROSEMIDE 40 MG TABLET PO ONE (14:22)
--- NOTE | 2017-07-02 14:29 | ER Document Report ---
ED General - General Chief Complaint: Shortness Of Breath Stated Complaint: STOMACH PAIN, CONGESTION Time Seen by Provider: 07/02/17 11:47 Mode of Arrival: Ambulatory Information source: Patient Notes: 52-year-old male history of congestive heart failure presents with complaints of worsening CHF. Patient notes last night he was unable to sleep laying flat, states he is on 20 mg of Lasix daily but feels that it is not enough at this point. He denies any fevers or chills he denies any current shortness of breath , he notes that the symptoms have improved since yesterday. TRAVEL OUTSIDE OF THE [place] IN LAST 30 DAYS: No - HPI Onset: Yesterday Onset/Duration: Persistent, Better Quality of pain: No pain Severity: Mild Pain Level: 1 Associated symptoms: Nonproductive cough, Shortness of breath Exacerbated by: Supine Relieved by: Denies Similar symptoms previously: Yes Recently seen / treated by doctor: Yes - Related Data Allergies/Adverse Reactions: No Known Allergies Allergy (Verified 07/02/17 11:39) Past Medical History - Social History Smoking Status: Unknown if Ever Smoked Cigarette use (# per day): No Chew tobacco use (# tins/day): No Smoking Education Provided: No Frequency of alcohol use: None Drug Abuse: None Family History: Reviewed & Not Pertinent Patient has suicidal ideation: No Patient has homicidal ideation: No - Past Medical History Cardiac Medical History: Reports: Hx Congestive Heart Failure, Hx Heart Attack, Hx Hypertension Renal/ Medical History: Denies: Hx Peritoneal Dialysis Psychiatric Medical History: Denies: Hx Depression Past Surgical History: Reports: Hx Internal Defibrillator - On 11/22/2025 Review of Systems - Review of Systems Notes: REVIEW OF SYSTEMS: CONSTITUTIONAL : Denies fever, chills, or sweats. Denies recent illness. EENT: Denies eye, ear, throat, or mouth pain or symptoms. Denies nasal or sinus congestion or discharge. Denies throat, tongue, or mouth swelling or difficulty swallowing. CARDIOVASCULAR: Denies chest pain. Denies palpitations or racing or irregular heart beat. Denies ankle edema. RESPIRATORY: Admits to cough shortness of breath GASTROINTESTINAL: Denies abdominal pain or distention. Denies nausea, vomiting , or diarrhea. Denies blood in vomitus, stools, or per rectum. Denies black, tarry stools. Denies constipation. GENITOURINARY: Denies difficulty urinating, painful urination, burning, frequency, blood in urine, or discharge. MUSCULOSKELETAL: Denies back or neck pain or stiffness. Denies joint pain or swelling. SKIN: Denies rash, lesions or sores. HEMATOLOGIC : Denies easy bruising or bleeding. LYMPHATIC: Denies swollen, enlarged glands. NEUROLOGICAL: Denies confusion or altered mental status. Denies passing out or loss of consciousness. Denies dizziness or lightheadedness. Denies headache. Denies weakness or paralysis or loss of use of either side. Denies problems with gait or speech. Denies sensory loss, numbness, or tingling. Denies seizures. PSYCHIATRIC: Denies anxiety or stress. Denies depression, suicidal ideation, or homicidal ideation. ALL OTHER SYSTEMS REVIEWED AND NEGATIVE. Dictation was performed using [employer] voice recognition software PHYSICAL EXAMINATION: GENERAL: Well-appearing, well-nourished and in no acute distress. HEAD: Atraumatic, normocephalic. EYES: Pupils equal round and reactive to light, extraocular movements intact, sclera anicteric, conjunctiva are normal. ENT: Nares patent, oropharynx clear without exudates. Moist mucous membranes. NECK: Normal range of motion, supple without lymphadenopathy LUNGS: Breath sounds clear to auscultation bilaterally and equal. No wheezes rales or rhonchi. HEART: Regular rate and rhythm without murmurs ABDOMEN: Soft, nontender, nondistended abdomen. No guarding, no rebound. No masses appreciated. Musculoskeletal: Normal range of motion, no pitting or edema. No cyanosis. NEUROLOGICAL: Cranial nerves grossly intact. Normal speech, normal gait. Normal sensory, motor exams PSYCH: Normal mood, normal affect. SKIN: Warm, Dry, normal turgor, no rashes or lesions noted. Physical Exam - Vital signs Vitals: Temp Pulse Resp BP Pulse Ox 98.8 F 76 20 146/98 H 96 07/02/17 11:25 07/02/17 11:25 07/02/17 11:25 07/02/17 11:25 07/02/17 11:25 Course - Re-evaluation Re-evalutation: 07/02/17 18:56 Patient's creatinine is slightly elevated, I believe that this is secondary to worsening kidney function, patient symptoms I believe are secondary to the worsening congestive heart failure but he is satting well, in no distress, his chest xray notes no signifcant congestion or effusion ,pt ambulating wlel ,will increase his lasix for the next 3 days and reevalaute. pt states he is happy with his plan and will return immediately if symptoms worsen. his trop are around what it has been i nthe past and consistent with ckd. After performing a Medical Screening Examination, I estimate there is LOW risk for RUPTURED ESOPHAGUS, PNEUMOTHORAX, PULMONARY EMBOLISM, ACUTE CORONARY SYNDROME, OR THORACIC AORTIC DISSECTION, thus I consider the discharge disposition reasonable. I have reevaluated this patient multiple times and no significant life threatening changes are noted. The patient and I have discussed the diagnosis and risks, and we agree with discharging home with close follow-up. We also discussed returning to the Emergency Department immediately if new or worsening symptoms occur. We have discussed the symptoms which are most concerning (e.g., bloody sputum, worsening pain or shortness of breath) that necessitate immediate return. - Vital Signs Vital signs: Temp Pulse Resp BP Pulse Ox 98.0 F 76 17 146/106 H 95 07/02/17 14:35 07/02/17 11:25 07/02/17 14:35 07/02/17 14:35 07/02/17 14:35 - Laboratory Result Diagrams: 07/02/17 11:58 07/02/17 11:58 Laboratory results interpreted by me: 07/02/17 07/02/17 07/02/17 11:58 11:58 11:58 RBC 3.60 L Hgb 10.8 L Hct 31.8 L RDW 14.2 H Sodium 146.8 H Chloride 108 H Carbon Dioxide 32 H BUN 26 H Creatinine 2.41 H Est GFR ( Amer) 35 L Est GFR (Non-Af Amer) 29 L NT-Pro-B Natriuret Pep 30982 H Albumin 3.4 L - Diagnostic Test Radiology reviewed: Image reviewed, Reports reviewed - EKG Interpretation by Me EKG shows normal: Sinus rhythm, Arley, Intervals, QRS Complexes - Inverted T waves noted similar to previous When compared to previous EKG there are: No significant change Discharge - Discharge Clinical Impression: Chronic kidney disease, stage 3 (moderate) CHF (congestive heart failure) Qualifiers: Heart failure type: unspecified Heart failure chronicity: acute on chronic Qualified Code(s): I50.9 - Heart failure, unspecified Condition: Stable Disposition: HOME, SELF-CARE Instructions: Congestive Heart Failure ([facility]) Additional Instructions: Please increase your Lasix to 40 mg 3 days or return immediately if there are any other concerns Referrals: ALEXIA GOTTI MD [Primary Care Provider] - Follow up as needed
[2017-07-02 14:49] VITALS: BP 146/106
== END 2017-07-02 14:49 | disposition home or self-care (01) ==
LOC: ER 10:55
DX: I13.0 Hypertensive heart and chronic kidney disease with heart failure and stage 1 through stage 4 chronic kidney disease, or unspecified chronic kidney disease (principal); N18.3 Chronic kidney disease, stage 3 (moderate); R06.02 Shortness of breath; R05 Cough; I50.9 Heart failure, unspecified; I25.2 Old myocardial infarction; Z95.810 Presence of automatic (implantable) cardiac defibrillator
CPT/HCPCS: 93005; 99285; 36415; 85025; 80053; 84484; 83880; 71046; 93010; J3490

== ENCOUNTER 2017-07-16 14:12 | Inpatient (IN) | payer MEDICAID ==
[2017-07-16] MEDS ORDERED: ASPIRIN 81 MG TABLET, CHEWABLE PO ONE (15:31)
--- NOTE | 2017-07-16 15:33 | ER Document Report ---
ED Medical Screen (RME) - General Chief Complaint: Chest Pain > 30 Stated Complaint: SHORTNESS OF BREATH, CHEST PAIN Time Seen by Provider: 07/16/17 15:26 Notes: RAPID MEDICAL EVALUATION DISCLOSURE I have seen this patient as part of a Rapid Medical Evaluation and, if applicable, placed any initially appropriate orders. The patient will be seen and fully evaluated, including a full history and physical exam, by a provider ( in Main ED or Fast Track) when a room becomes available. 52-year-old male PMH CHF AICD here with complaints of progressively worsening shortness of breath and midsternal chest pain nonradiating over the past 4 days. He reports being unable to sleep because when he lays flat, he begins to cough and can feel "a gurgling feeling in my lungs". His stripe marker Dr. Cifuentes told him to double up on his diuretics for 3 days which he has done however patient states the symptoms persist, especially at night. His chest pain is not worse with exertion. EXAM Minimal bibasilar rales RRR TRAVEL OUTSIDE OF THE [place] IN LAST 30 DAYS: No - Related Data Allergies/Adverse Reactions: No Known Allergies Allergy (Verified 07/02/17 11:39) Past Medical History - Past Medical History Cardiac Medical History: Reports: Hx Congestive Heart Failure, Hx Heart Attack, Hx Hypertension Renal/ Medical History: Denies: Hx Peritoneal Dialysis Psychiatric Medical History: Denies: Hx Depression Past Surgical History: Reports: Hx Internal Defibrillator - On 11/22/2025 - Immunizations History of Influenza Vaccine for 12/2016 - 05/2017 Season: Refused
[2017-07-16 15:57] LABS: ABSOLUTE BASOPHILS # (AUTO) 0.1 10^3/uL (0.0-0.2); ABSOLUTE EOSINOPHILS # (AUTO) 0.1 10^3/uL (0.0-0.6); ABSOLUTE LYMPHOCYTES (AUTO) 2.1 10^3/uL (0.5-4.7); ABSOLUTE MONOCYTES (AUTO) 0.6 10^3/uL (0.1-1.4); ABSOLUTE NEUT (AUTO) 2.3 10^3/uL (1.7-8.2); BASOPHILS % (AUTO) 1.1 % (0-2); EOSINOPHILS % (AUTO) 2.6 % (0-6); HEMOGLOBIN 11.1 g/dL (13.5-17.0); LYMPHOCYTES % (AUTO) 40.7 % (13-45); MEAN CORPUSCULAR HEMOGLOBIN 29.8 pg (27.0-33.4); MEAN CORPUSCULAR HGB CONC 33.5 g/dL (32.0-36.0); MEAN CORPUSCULAR VOLUME 89 fl (80-97); MONOCYTES % (AUTO) 11.7 % (3-13); PLATELET COUNT 225 10^3/uL (150-450); RED BLOOD COUNT 3.71 10^6/uL (4.35-5.55); RED CELL DISTRIBUTION WIDTH 14.6 % (11.5-14.0); SEGMENTED NEUTROPHILS % (AUTO) 43.9 % (42-78); TOTAL CELLS COUNTED % (AUTO) 100 %; WHITE BLOOD COUNT 5.2 10^3/uL (4.0-10.5)
[2017-07-16 16:15] LABS: ANION GAP 13 (5-19); BLOOD UREA NITROGEN 47 mg/dL (7-20); CALCIUM 9.3 mg/dL (8.4-10.2); CARBON DIOXIDE 27 mmol/L (22-30); CHLORIDE 107 mmol/L (98-107); GLUCOSE 101 mg/dL (75-110); SODIUM 147.2 mmol/L (137-145)
--- NOTE | 2017-07-16 16:33 | RADIOLOGY REPORT (SQ) ---
EXAM DESCRIPTION: CHEST 2 VIEWS COMPLETED DATE/TIME: 07/16/2017 4:13 pm REASON FOR STUDY: CP SOB COMPARISON: 07/02/2017 EXAM PARAMETERS: NUMBER OF VIEWS: two views TECHNIQUE: Digital Frontal and Lateral radiographic views of the chest acquired. RADIATION DOSE: NA LIMITATIONS: none FINDINGS: LUNGS AND PLEURA: Interval development small pleural effusions with blunting of the costop hrenic angles. MEDIASTINUM AND HILAR STRUCTURES: Stable. HEART AND VASCULAR STRUCTURES: Cardiomegaly stable. No overt CHF. BONES: No acute findings. HARDWARE: None in the chest. OTHER: No other significant finding. IMPRESSION: Cardiomegaly with small bilateral pleural effusions. Mild vascular prominence. TECHNICAL DOCUMENTATION: JOB ID: [id number] [employer]- All Rights Reserved Reading location - IP/workstation name: [email or web address]
[2017-07-16 16:35] LABS: TROPONIN I 0.081 ng/mL
--- NOTE | 2017-07-16 17:47 | ER Document Report ---
ED Cardiac - General Chief Complaint: Chest Pain > 30 Stated Complaint: SHORTNESS OF BREATH, CHEST PAIN Time Seen by Provider: 07/16/17 15:26 Mode of Arrival: Ambulatory Information source: Patient Notes: This is a 52-year-old man with history of cardiomyopathy with a pacemaker who presents to the emergency room with worsening dyspnea on exertion, shortness of breath, orthopnea and PND. Patient states his symptoms of progressively gotten worse over the last week. He denies any chest pain. TRAVEL OUTSIDE OF THE [place] IN LAST 30 DAYS: No - HPI Patient complains to provider of: Shortness of breath. denies: Chest pain Use of: denies: Alcohol, Amphetamines, Bath salts, Caffeine, Cocaine, Decongestants, Other Was the onset of pain: Gradual Is the pain a: Chronic problem Quality of pain: None Severity now: None Associated symptoms: Shortness of breath Exacerbated by: Lying flat Relieved by: Leaning forward Similar symptoms previously: Yes Recently seen / treated by doctor: Yes - Related Data Allergies/Adverse Reactions: No Known Allergies Allergy (Verified 07/02/17 11:39) Home Medications: lisinopril, carvedilol, spiralactone, lasix, ASA Past Medical History - General Information source: Patient - Social History Smoking Status: Current Some Day Smoker Cigarette use (# per day): No Chew tobacco use (# tins/day): No Frequency of alcohol use: Pt reports,"a 40 a week." Drug Abuse: None Lives with: Family Family History: Reviewed & Not Pertinent Patient has suicidal ideation: No Patient has homicidal ideation: No - Past Medical History Cardiac Medical History: Reports: Hx Congestive Heart Failure, Hx Heart Attack, Hx Hypertension Renal/ Medical History: Denies: Hx Peritoneal Dialysis Psychiatric Medical History: Denies: Hx Depression Past Surgical History: Reports: Hx Internal Defibrillator - On 11/22/2025 Review of Systems - Review of Systems Notes: Review of systems: Constitutional: Denies fever, chills. EENT: Denies ear pain, sinus tenderness, throat pain, throat swelling. Cardiovascular: See H&P Respiratory: Denies wheezing, cough, hemoptysis. Abdomen: Denies abdominal pain, nausea, vomiting, diarrhea. Denies BRBPR or melena. Genitourinary: Denies dysuria, pyuria, hematuria, flank pain. Musculoskeletal: denies joint pain or swelling, denies back pain. Neurologic: Denies headache, photophobia, neck stiffness, weakness. Denies loss of bowel or bladder function. Denies saddle anesthesia. Skin: Denies rash, lesions. Physical Exam - Vital signs Notes: Physical exam: GENERAL: 52-year-old man, alert and oriented 3, no acute distress lying in stretcher HEAD: Atraumatic, normocephalic. EYES: Pupils equal round and reactive to light, extraocular movements intact, sclera anicteric, conjunctiva are normal. ENT: TMs normal, nares patent, oropharynx clear without exudates. Moist mucous membranes. NECK: Normal range of motion, supple without obvious mass or JVD. LUNGS: Crackles bilaterally HEART: Regular rate and rhythm without murmurs, rubs or gallops. ABDOMEN: Soft, normoactive bowel sounds. No tenderness to palpation. No guarding, no rebound. No masses appreciated. EXTREMITIES: Normal range of motion, no pitting or edema. No clubbing or cyanosis. NEUROLOGICAL: Cranial nerves II through XII grossly intact. Normal speech, moving all extremities. PSYCH: Normal mood, normal affect. SKIN: Warm, Dry, normal turgor, no rashes or lesions noted. Course - Laboratory Result Diagrams: 07/16/17 15:45 07/16/17 15:45 Laboratory results interpreted by me: 07/16/17 07/16/17 07/16/17 15:45 15:45 15:45 RBC 3.71 L Hgb 11.1 L Hct 33.0 L RDW 14.6 H Sodium 147.2 H BUN 47 H Creatinine 3.09 H Est GFR ( Amer) 26 L Est GFR (Non-Af Amer) 22 L NT-Pro-B Natriuret Pep 28055 H - Diagnostic Test Radiology reviewed: Image reviewed, Reports reviewed - Washer Cutter with fluid overload - EKG Interpretation by Me Rate: Normal Rhythm: NSR Critical Care Note - Critical Care Note Total time excluding time spent on procedures (mins): 60 Discharge - Discharge Clinical Impression: Decompensated heart failure, Acute on chronic kidney injury Condition: Stable Disposition: ADMITTED INPATIENT Admitting Provider: Hospitalist - Dr Everett Unit Admitted: IMCU Referrals: RICARDO SOLORZANO,MD LUIS [Primary Care Provider] - Follow up as needed
[2017-07-16] MEDS ORDERED: LEVALBUTEROL HCL NEB 0.63 MG/3 ML AMPUL NEB PRN (18:39)
[2017-07-16] MEDS ORDERED: ONDANSETRON HCL INJ/PF 4 MG/2 ML SDV IV PRN (18:39)
--- NOTE | 2017-07-16 18:54 | PDOC H&P ---
History of Present Illness Admission Date/PCP: 07/16/17 LUIS SILVA JR, MD Patient complains of: SHortness of breath History of Present Illness: The patient is a 52-year-old gentleman with a past medical history of Systolic CHF- Ischemic cardiomyopathy. AICD Hypertension Stage III chronic kidney disease Echocardiogram in April 2017 showed a left ventricular ejection fraction less than 20% Mild to moderate diastolic dysfunction. Mild to moderate pulmonary hypertension. He presented to the hospital today with a one-week history of progressively worsening dyspnea on exertion orthopnea PND. In the emergency room he was found to have small bilateral pleural effusions and increased pulmonary vascular congestion on chest x-ray. He was also noted to have worsening kidney function. Outpatient medications: Lisinopril 20 mg daily Lasix 20 mg daily- has been taking 40 mg daily for the past 4 days per instructions due to dyspnea Spironolactone 25 mg po daily Coreg 12.5 mg PO BID Aspirin 81 mg PO daily. Denies Chest pain. No AICD firing. Requests to be a Full code. Healthcare POA is his mounika Palma phone number [phone], . Past Medical History Cardiac Medical History: Reports: Congestive Heart Failure, Myocardial Infarction, Hypertension Psychiatric Medical History: Denies: Depression Past Surgical History Past Surgical History: Reports: Internal Defibrillator - On 11/22/2025 Social History Information Source: Patient Smoking Status: Current Some Day Smoker Frequency of Alcohol Use: Occasional Hx Recreational Drug Use: No Drugs: None, Other - Prior h/o cocaine use Hx Prescription Drug Abuse: No Family History Family History: CAD Parental Family History Reviewed: Yes Children Family History Reviewed: Yes Sibling(s) Family History Reviewed.: Yes Medication/Allergy Home Medications: Hydrocodone/Acetaminophen [[place] 5-325 mg Tablet] 1 tab PO Q4HP PRN 04/30/17 Aspirin [Ecotrin 81 mg EC Tablet] 81 mg PO DAILY tabec 05/03/17 Carvedilol [Coreg 12.5 mg Tablet] 25 mg PO Q12 #60 tablet 05/03/17 Furosemide [Lasix 40 mg Tablet] 40 mg PO DAILY #30 tablet 05/03/17 Lisinopril [Prinivil] 20 mg PO DAILY #30 tablet 05/03/17 Spironolactone [Aldactone 25 mg Tablet] 25 mg PO DAILY #30 tablet 05/03/17 Allergies/Adverse Reactions: No Known Allergies Allergy (Verified 07/02/17 11:39) Review of Systems Constitutional: ABSENT: fever(s) Eyes: ABSENT: visual disturbances Ears: ABSENT: hearing changes Nose, Mouth, and Throat: ABSENT: sore throat Cardiovascular: PRESENT: dyspnea on exertion, orthropnea. ABSENT: chest pain Respiratory: PRESENT: dyspnea. ABSENT: cough Gastrointestinal: ABSENT: abdominal pain, constipation, vomiting Genitourinary: ABSENT: dysuria Musculoskeletal: ABSENT: deformity Integumentary: ABSENT: rash Neurological: ABSENT: focal weakness Psychiatric: ABSENT: hallucinations, suicidal ideation Hematologic/Lymphatic: ABSENT: easy bleeding Physical Exam Vital Signs: BP: 136/95 HR: 85, RR: 18 General appearance: PRESENT: no acute distress Head exam: PRESENT: normocephalic Eye exam: PRESENT: PERRLA Mouth exam: PRESENT: moist Teeth exam: PRESENT: poor dentation Neck exam: PRESENT: JVD. ABSENT: tracheal deviation Respiratory exam: PRESENT: crackles, symmetrical Cardiovascular exam: PRESENT: RRR GI/Abdominal exam: PRESENT: normal bowel sounds, soft. ABSENT: tenderness Rectal exam: PRESENT: deferred Gentrourinary exam: ABSENT: indwelling catheter Extremities exam: ABSENT: calf tenderness, pedal edema Musculoskeletal exam: PRESENT: normal inspection Neurological exam: PRESENT: alert, awake, oriented to person, oriented to place , oriented to time, oriented to situation Psychiatric exam: PRESENT: appropriate affect Skin exam: ABSENT: rash Results Laboratory Results: 07/16/17 15:45 07/16/17 15:45 07/16/17 07/16/17 15:45 15:45 WBC 5.2 RBC 3.71 L Hgb 11.1 L Hct 33.0 L MCV 89 MCH 29.8 MCHC 33.5 RDW 14.6 H Plt Count 225 Seg Neutrophils % 43.9 Lymphocytes % 40.7 Monocytes % 11.7 Eosinophils % 2.6 Basophils % 1.1 Absolute Neutrophils 2.3 Absolute Lymphocytes 2.1 Absolute Monocytes 0.6 Absolute Eosinophils 0.1 Absolute Basophils 0.1 Sodium 147.2 H Potassium 5.0 Chloride 107 Carbon Dioxide 27 Anion Gap 13 BUN 47 H Creatinine 3.09 H Est GFR ( Amer) 26 L Est GFR (Non-Af Amer) 22 L Glucose 101 Calcium 9.3 07/16/17 15:45 Troponin I 0.081 NT-Pro-B Natriuret Pep 32265 H Impressions: Chest X-Ray 07/16/17 15:31 IMPRESSION: Cardiomegaly with small bilateral pleural effusions. Mild vascular prominence. Assessment & Plan - Diagnosis (1) Acute systolic CHF (congestive heart failure), NYHA class 4 Is this a current diagnosis for this admission?: Yes Plan: IV Lasix, sodium restriction, monitor intake and output. Adjust lasix for renal function. Continue Coreg and Aspirin Hold Lisinopril due to worsening renal function. Monitor creatinine. (2) Acute on chronic renal failure Is this a current diagnosis for this admission?: Yes Plan: Hold Lisinopril. Monitor renal function and urine output (3) Pulmonary edema Qualifiers: Chronicity: acute Qualified Code(s): J81.0 - Acute pulmonary edema Is this a current diagnosis for this admission?: Yes Plan: above. (4) DVT prophylaxis Is this a current diagnosis for this admission?: Yes Plan: S/C Lovenox - Time Time Spent: 50 to 70 Minutes - Inpatient Certification Medical Necessity: Need For Continuous Telemetry Monitoring, Risk of Complication if Not Cared For in Hospital
--- NOTE | 2017-07-16 20:07 | EKG REPORT ---
SEVERITY:- ABNORMAL ECG - SINUS RHYTHM PROBABLE LEFT ATRIAL ABNORMALITY LVH WITH SECONDARY REPOLARIZATION ABNORMALITY ABNORMAL T, PROBABLE ISCHEMIA, LATERAL LEADS VS LVH RELATED : Confirmed by: Raul Sherwood 16-Jul-2017 20:07:21
[2017-07-16] MEDS ORDERED: FUROSEMIDE INJ/PF 20 MG/2 ML SDV IV ONE (20:30)
[2017-07-16] MEDS: CARVEDILOL 12.5 MG TABLET PO SCH (22:19)
[2017-07-17 06:24] LABS: ANION GAP 13 (5-19); BLOOD UREA NITROGEN 48 mg/dL (7-20); CALCIUM 8.9 mg/dL (8.4-10.2); CARBON DIOXIDE 26 mmol/L (22-30); CHLORIDE 107 mmol/L (98-107); GLUCOSE 105 mg/dL (75-110); PHOSPHORUS 5.2 mg/dL (2.5-4.5); POTASSIUM 4.2 mmol/L (3.6-5.0); SODIUM 145.6 mmol/L (137-145)
[2017-07-17] MEDS: CARVEDILOL 12.5 MG TABLET PO SCH ×2 (09:31→21:13)
[2017-07-17] MEDS: ASPIRIN 81 MG TABLET, ENT COATED PO SCH (09:35)
[2017-07-17] MEDS: DOCUSATE SODIUM 100 MG CAPSULE PO SCH (09:35)
[2017-07-17] MEDS ORDERED: ENOXAPARIN SODIUM INJ 40 MG/0.4 ML DISP.SYRIN SUBCUT SCH (10:00)
--- NOTE | 2017-07-17 11:49 | Physician Advisory Note ---
Physician Advisor ProgressNote .: Pursuant to the plan for [facility], I have reviewed the medical record for this patient. Physician Advisor Statement: Nice documentation of Acute systolic CHF (on chronic - also diastolic?) with supporting evidence, acute pulmonary edema, & ARF on CKD stage 3. Please consider documenting, in each note, if you agree: 1. "Acute hypernatremia, suspect due to " 2. "pulmonary HTN" 3. At least once: what his likely baseline Cr is (1.7s, from 05/02 & 05/03?) Status: appropriately Inpatient. CHF exac.s are typically Obs 'til proven otherwise, but this pt already failed outpt tx with 4 days of doubled Lasix prior to arrival, and had developed ARF which can - & now has - worsen(ed) with acute tx for the CHF exac. High risk for further decompensation, especially with underlying EF <20%, diastolic as well as systolic dysfunction, & pulmonary HTN, CAD w/previous NE & ongoing tobacco abuse, & presence of anemia that further stresses the heart/lung system. CK
[2017-07-17] MEDS ORDERED: NORMAL SALINE 250 ML with FUROSEMIDE 250 MG IV PRN ×2 (12:40)
--- NOTE | 2017-07-17 13:00 | PDOC PROGRESS REPORT ---
Subjective Progress Note for:: 07/17/17 Subjective:: Patient is describing some intermittent chest discomfort No real shortness of breath except when he walks No nausea no vomiting No abdominal discomfort Reason For Visit: ACUTE SYSTOLIC CHF EXACERBATION Physical Exam Vital Signs: Temp Pulse Resp BP Pulse Ox 97.9 F 67 12 125/90 H 98 07/17/17 12:00 07/17/17 12:00 07/17/17 12:00 07/17/17 12:00 07/17/17 12:00 Intake & Output 07/16/17 07/17/17 07/18/17 00:59 00:59 00:59 Intake Total 845 Output Total 300 Balance 545 Weight 72 kg General appearance: PRESENT: no acute distress, well-developed, well-nourished Head exam: PRESENT: atraumatic Eye exam: PRESENT: conjunctiva pink, EOMI, PERRLA. ABSENT: scleral icterus Neck exam: ABSENT: carotid bruit, JVD, lymphadenopathy, thyromegaly Respiratory exam: PRESENT: clear to auscultation jenn, decreased breath sounds - At the bases. ABSENT: rales, rhonchi, wheezes Cardiovascular exam: PRESENT: RRR. ABSENT: diastolic murmur, rubs, systolic murmur Extremities exam: PRESENT: full ROM. ABSENT: calf tenderness, clubbing, pedal edema Neurological exam: PRESENT: alert, awake, oriented to person, oriented to place , oriented to time, oriented to situation, CN II-XII grossly intact. ABSENT: motor sensory deficit Skin exam: PRESENT: abrasion Results Laboratory Results: 07/17/17 05:14 07/17/17 07/17/17 05:14 05:14 Sodium 145.6 H Potassium 4.2 Chloride 107 Carbon Dioxide 26 Anion Gap 13 BUN 48 H Creatinine 3.37 H Est GFR ( Amer) 24 L Est GFR (Non-Af Amer) 19 L Glucose 105 Calcium 8.9 Phosphorus 5.2 H Magnesium 2.0 TSH 2.13 07/17/17 05:14 NT-Pro-B Natriuret Pep 79448 H Impressions: Chest X-Ray 07/16/17 15:31 IMPRESSION: Cardiomegaly with small bilateral pleural effusions. Mild vascular prominence. Assessment & Plan - Diagnosis (2) Cardiomyopathy Qualifiers: Cardiomyopathy type: unspecified Qualified Code(s): I42.9 - Cardiomyopathy , unspecified Is this a current diagnosis for this admission?: Yes (3) Hypertension Qualifiers: Hypertension type: essential hypertension Qualified Code(s): I10 - Essential (primary) hypertension Is this a current diagnosis for this admission?: Yes (4) Acute on chronic renal failure Is this a current diagnosis for this admission?: Yes - Time Time Spent with patient: Case was discussed with cardiology Dr. Javed who feels that the heart failure secondary to the acute renal failure and fluid overload We will initiate Lasix drip at 5 mg/h We will obtain serial cardiac enzymes to exclude acute coronary syndrome A nephrology consult will be obtained A renal ultrasound was ordered to exclude hydronephrosis post obstructive uropathy Time Spent with patient: 25-34 minutes
--- NOTE | 2017-07-17 15:59 | PDOC CONSULTATION ---
Consultation Consult Date: 07/17/17 Consult reason:: Acute on chronic kidney disease History of Present Illness Admission Date/PCP: 07/16/17 17:46 LUIS SILVA JR, MD History of Present Illness: BORIS PEREZ is a 52 year old male with history of chronic congestive cardiomyopathy apparently cocaine induced was admitted with history of shortness of breath of 3-4 days duration. Did review his echo from earlier this year which showed an LV ejection fraction of less than 20% with global LV dyskinesis. Was not of sudden onset and has been progressively getting worse to the point that he was having orthopnea.No complaints of any chest pain, fever or chills. He admits not to have seen any pedal edema. Admits to having a dry cough.He says he was using cocaine many years ago but apparently has not been using of lately. Urine drug screen is pending.He mentions that he was first told that he had kidney disease earlier this year but was not aware of it earlier. He says he has no primary care and he follows with his lamp assembler Dr. Silva in [place] and of lately he has been seeing them at [facility].Labs and medications were reviewed. Currently he is feeling better. Past Medical History Cardiac Medical History: Reports: CHF-Diastolic - With an LV ejection fraction of less than 20% and global LV dyskinesis year, Myocardial Infarction Renal/ Medical History: Reports: Chronic Kidney Disease Stage III Psychiatric Medical History: Denies: Depression Past Surgical History Past Surgical History: Reports: Internal Defibrillator - On 11/22/2025 Social History Lives with: Family Smoking Status: Current Some Day Smoker Last Time Smoked: 07/14/2017 Frequency of Alcohol Use: Occasional Hx Recreational Drug Use: No Drugs: None, Other Hx Prescription Drug Abuse: No - Advance Directive Resuscitation Status: Full Code Family History Parental Family History Reviewed: Yes - Negative for CKD Children Family History Reviewed: No Sibling(s) Family History Reviewed.: No Medication/Allergy Home Medications: Aspirin [Ecotrin 81 mg EC Tablet] 81 mg PO DAILY tabec 05/03/17 Lisinopril [Prinivil] 20 mg PO DAILY #30 tablet 05/03/17 Spironolactone [Aldactone 25 mg Tablet] 25 mg PO DAILY #30 tablet 05/03/17 Carvedilol [Coreg 12.5 mg Tablet] 12.5 mg PO Q12 07/16/17 Furosemide [Lasix 20 mg Tablet] 20 mg PO QAM 07/16/17 Allergies/Adverse Reactions: No Known Allergies Allergy (Verified 07/02/17 11:39) Review of Systems Constitutional: PRESENT: fatigue. ABSENT: fever(s), headache(s), night sweats, weakness Nose, Mouth, and Throat: ABSENT: mouth pain, sore throat Cardiovascular: PRESENT: dyspnea on exertion, orthropnea, palpitations. ABSENT : chest pain, edema Respiratory: PRESENT: cough - Dry, dyspnea. ABSENT: hemoptysis Gastrointestinal: ABSENT: abdominal pain, bloating, diarrhea, dysphagia, heartburn, hematemesis, hematochezia, nausea, vomiting Genitourinary: ABSENT: dysuria, hematuria Integumentary: ABSENT: lesions, pruritus Neurological: ABSENT: confusion, convulsions, dizziness, focal weakness Hematologic/Lymphatic: ABSENT: easy bruising, lymphadenopathy Physical Exam Vital Signs: Temp Pulse Resp BP Pulse Ox 97.9 F 67 12 125/90 H 98 07/17/17 12:00 07/17/17 12:00 07/17/17 12:00 07/17/17 12:00 07/17/17 12:00 Intake & Output 07/16/17 07/17/17 07/18/17 06:59 06:59 06:59 Intake Total 490 355 Output Total 300 Balance 190 355 Weight 72 kg General appearance: PRESENT: no acute distress Eye exam: PRESENT: conjunctiva pink, EOMI, PERRLA. ABSENT: nystagmus, scleral icterus Mouth exam: PRESENT: neck supple. ABSENT: moist Neck exam: ABSENT: lymphadenopathy, meningismus, tenderness, thyromegaly, tracheal deviation Respiratory exam: PRESENT: clear to auscultation jenn. ABSENT: crackles, rhonchi Cardiovascular exam: PRESENT: +S1, +S2, systolic murmur GI/Abdominal exam: PRESENT: normal bowel sounds, soft. ABSENT: organomegaly, tenderness Extremities exam: ABSENT: pedal edema Neurological exam: PRESENT: alert, awake, oriented to person, oriented to place , oriented to time Psychiatric exam: PRESENT: appropriate affect Skin exam: PRESENT: cyanosis, dry. ABSENT: erythema, mottled, rash Results Laboratory Results: 07/17/17 05:14 07/17/17 07/17/17 05:14 05:14 Sodium 145.6 H Potassium 4.2 Chloride 107 Carbon Dioxide 26 Anion Gap 13 BUN 48 H Creatinine 3.37 H Est GFR ( Amer) 24 L Est GFR (Non-Af Amer) 19 L Glucose 105 Calcium 8.9 Phosphorus 5.2 H Magnesium 2.0 TSH 2.13 07/17/17 07/17/17 05:14 12:54 Troponin I 0.075 NT-Pro-B Natriuret Pep [id number] H Impressions: Chest X-Ray 07/16/17 15:31 IMPRESSION: Cardiomegaly with small bilateral pleural effusions. Mild vascular prominence. Assessment & Plan - Diagnosis (1) Acute on chronic combined systolic and diastolic CHF (congestive heart failure) Is this a current diagnosis for this admission?: Yes Plan: Clinical presentation that of congestive heart failure now currently relatively stable. Currently on IV Lasix infusion. Further management as per hospitalist and lamp assembler. Echo done earlier of this year was reviewed which showed LV ejection fraction of less than 20% with global LV dyskinesia. He has cardiorenal syndrome. Wonders if he is also using cocaine even though he says otherwise. Drug screen pending. (2) Acute on chronic renal failure Is this a current diagnosis for this admission?: Yes Plan: Obviously has worsening CKD as from April of this year most likely from cardiorenal syndrome. Is now CKD stage IV. We discussed the pros and cons. Advised on proper diet.Get a renal ultrasound. No indications for renal replacements of the moment. (3) Cardiomyopathy Qualifiers: Cardiomyopathy type: unspecified Qualified Code(s): I42.9 - Cardiomyopathy , unspecified Is this a current diagnosis for this admission?: Yes Plan: Apparently cocaine induced. (4) Acute kidney injury Is this a current diagnosis for this admission?: Yes Plan: As mentioned earlier. No indications for renal replacements. Monitor. Continue present management strategies.
[2017-07-18 06:44] LABS: ANION GAP 12 (5-19); BLOOD UREA NITROGEN 45 mg/dL (7-20); CALCIUM 9.2 mg/dL (8.4-10.2); CARBON DIOXIDE 26 mmol/L (22-30); CHLORIDE 107 mmol/L (98-107); GLUCOSE 107 mg/dL (75-110); POTASSIUM 4.1 mmol/L (3.6-5.0); SODIUM 145.3 mmol/L (137-145)
--- NOTE | 2017-07-18 08:33 | RADIOLOGY REPORT (SQ) ---
EXAM DESCRIPTION: U/S RETROPERITON (RENAL/AORTA); U/S LTD DUPLEX ART/HUA FLOW COMPLETED DATE/TIME: 07/18/2017 7:48 am; 07/18/2017 7:46 am REASON FOR STUDY: kidneys eval for hydro; arterial doppler renal arteries - ARF- COMPARISON: None. TECHNIQUE: Realtime and static grayscale images acquired. Selected color Doppler, velocities and spe ctral images recorded. LIMITATIONS: Renal artery origins off the aorta are difficult to visualize due to bowel gas FINDINGS: RIGHT KIDNEY: RENAL ARTERY VELOCITIES: 38 cm/sec. Segmental artery velocity 24 cm/sec. RENAL VEIN: Color doppler flow present, patent. VELOCITY RATIO: 0.6 . Normal waveforms. KIDNEY: 11 cm in length with moderate to marked right hydronephrosis and upper hydroureter. There is diffuse right cortical thinning and mild increased echogenicity. LEFT KIDNEY: RENAL ARTERY VELOCITIES: 32 cm/sec. Segmental artery velocity 30.2 cm/sec. RENAL VEIN: Color doppler flow present, patent. VELOCITY RATIO: 0.5. Normal waveforms. KIDNEY: Left kidney is 12 cm in length with moderate to marked left hydronephrosis and upper hydrour eter. Mild cortical increased echogenicity without gross cortical thinning. BLADDER: Bladder is distended, bladder volume estimated at 1822 mL. There is diffuse bladder wall th ickening, debris is also seen in the urine in the bladder. There is a mass at the bladder base inden ting the bladder lumen likely an enlarged prostate. Malignancy could not be excluded. OTHER: No other significant finding. IMPRESSION: NO DOPPLER EVIDENCE OF HEMODYNAMICALLY SIGNIFICANT RENAL ARTERY STENOSIS. Bladder outlet obstruction related to an enlarged prostate. There is debris in the bladder, and mode rate to marked bilateral hydronephrosis and hydroureter. Results called to Dr. Flores COMMENT: NORMAL RENAL ARTERY/AORTA VELOCITY RATIO IS LESS THAN OR EQUAL TO 3.5. TECHNICAL DOCUMENTATION: JOB ID: [id number] [employer]- All Rights Reserved Reading location - IP/workstation name: [email or web address]
--- NOTE | 2017-07-18 08:33 | RADIOLOGY REPORT (SQ) ---
EXAM DESCRIPTION: U/S RETROPERITON (RENAL/AORTA); U/S LTD DUPLEX ART/HUA FLOW COMPLETED DATE/TIME: 07/18/2017 7:48 am; 07/18/2017 7:46 am REASON FOR STUDY: kidneys eval for hydro; arterial doppler renal arteries - ARF- COMPARISON: None. TECHNIQUE: Realtime and static grayscale images acquired. Selected color Doppler, velocities and spe ctral images recorded. LIMITATIONS: Renal artery origins off the aorta are difficult to visualize due to bowel gas FINDINGS: RIGHT KIDNEY: RENAL ARTERY VELOCITIES: 38 cm/sec. Segmental artery velocity 24 cm/sec. RENAL VEIN: Color doppler flow present, patent. VELOCITY RATIO: 0.6 . Normal waveforms. KIDNEY: 11 cm in length with moderate to marked right hydronephrosis and upper hydroureter. There is diffuse right cortical thinning and mild increased echogenicity. LEFT KIDNEY: RENAL ARTERY VELOCITIES: 32 cm/sec. Segmental artery velocity 30.2 cm/sec. RENAL VEIN: Color doppler flow present, patent. VELOCITY RATIO: 0.5. Normal waveforms. KIDNEY: Left kidney is 12 cm in length with moderate to marked left hydronephrosis and upper hydrour eter. Mild cortical increased echogenicity without gross cortical thinning. BLADDER: Bladder is distended, bladder volume estimated at 1822 mL. There is diffuse bladder wall th ickening, debris is also seen in the urine in the bladder. There is a mass at the bladder base inden ting the bladder lumen likely an enlarged prostate. Malignancy could not be excluded. OTHER: No other significant finding. IMPRESSION: NO DOPPLER EVIDENCE OF HEMODYNAMICALLY SIGNIFICANT RENAL ARTERY STENOSIS. Bladder outlet obstruction related to an enlarged prostate. There is debris in the bladder, and mode rate to marked bilateral hydronephrosis and hydroureter. Results called to Dr. Flores COMMENT: NORMAL RENAL ARTERY/AORTA VELOCITY RATIO IS LESS THAN OR EQUAL TO 3.5. TECHNICAL DOCUMENTATION: JOB ID: [id number] [employer]- All Rights Reserved Reading location - IP/workstation name: [email or web address]
[2017-07-18] MEDS ORDERED: LIDOCAINE 2% URO-JET 5 ML KIT MM ONE (09:00)
--- NOTE | 2017-07-18 09:03 | PDOC PROGRESS REPORT ---
Subjective Progress Note for:: 07/18/17 Subjective:: Patient has no chest pain today ; no abdominal pain does not describe dysuria or bladder fullness states "just urinating very little " No real shortness of breath except when he walks No nausea no vomiting No abdominal discomfort US kidneys consistent with post obstructive uropathy Loja catheter to be inserted Reason For Visit: ACUTE SYSTOLIC CHF EXACERBATION Physical Exam Vital Signs: Temp Pulse Resp BP Pulse Ox 98.0 F 64 18 139/98 H 97 07/18/17 07:45 07/18/17 07:45 07/18/17 07:45 07/18/17 07:45 07/18/17 07:45 Intake & Output 07/17/17 07/18/17 07/19/17 00:59 00:59 00:59 Intake Total 2572 68 Output Total 1900 Balance 672 68 Weight 72 kg 73 kg General appearance: PRESENT: no acute distress, well-developed, well-nourished Head exam: PRESENT: atraumatic Eye exam: PRESENT: conjunctiva pink, EOMI, PERRLA. ABSENT: scleral icterus Neck exam: ABSENT: carotid bruit, JVD, lymphadenopathy, thyromegaly Respiratory exam: PRESENT: clear to auscultation jenn, decreased breath sounds - At the bases. ABSENT: rales, rhonchi, wheezes Cardiovascular exam: PRESENT: RRR. ABSENT: diastolic murmur, rubs, systolic murmur Extremities exam: PRESENT: full ROM. ABSENT: calf tenderness, clubbing, pedal edema Neurological exam: PRESENT: alert, awake, oriented to person, oriented to place , oriented to time, oriented to situation, CN II-XII grossly intact. ABSENT: motor sensory deficit Skin exam: PRESENT: abrasion Results Laboratory Results: 07/18/17 06:20 07/18/17 06:20 Sodium 145.3 H Potassium 4.1 Chloride 107 Carbon Dioxide 26 Anion Gap 12 BUN 45 H Creatinine 3.50 H Est GFR ( Amer) 23 L Est GFR (Non-Af Amer) 19 L Glucose 107 Calcium 9.2 Magnesium 2.0 07/17/17 07/17/17 07/17/17 05:14 12:54 18:55 Troponin I 0.075 0.078 NT-Pro-B Natriuret Pep [id number] H 07/18/17 00:44 Troponin I 0.084 NT-Pro-B Natriuret Pep Impressions: Chest X-Ray 07/16/17 15:31 IMPRESSION: Cardiomegaly with small bilateral pleural effusions. Mild vascular prominence. Renal Ultrasound 07/18/17 00:00 IMPRESSION: NO DOPPLER EVIDENCE OF HEMODYNAMICALLY SIGNIFICANT RENAL ARTERY STENOSIS. Bladder outlet obstruction related to an enlarged prostate. There is debris in the bladder, and moderate to marked bilateral hydronephrosis and hydroureter. Results called to Dr. Flores Vascular Ultrasound 07/18/17 00:00 IMPRESSION: NO DOPPLER EVIDENCE OF HEMODYNAMICALLY SIGNIFICANT RENAL ARTERY STENOSIS. Bladder outlet obstruction related to an enlarged prostate. There is debris in the bladder, and moderate to marked bilateral hydronephrosis and hydroureter. Results called to Dr. Flores Assessment & Plan - Diagnosis (1) Acute on chronic combined systolic and diastolic CHF (congestive heart failure) Is this a current diagnosis for this admission?: Yes Plan: lasix drip was initiated Heart failure secondary to fluid overload will d/c lasix drip now as loja is inserted and hopefully renal function will improve with resolution of urinary retention (2) Cardiomyopathy Qualifiers: Cardiomyopathy type: unspecified Qualified Code(s): I42.9 - Cardiomyopathy , unspecified Is this a current diagnosis for this admission?: Yes (3) Hypertension Qualifiers: Hypertension type: essential hypertension Qualified Code(s): I10 - Essential (primary) hypertension Is this a current diagnosis for this admission?: Yes Plan: controlled (4) Acute on chronic renal failure Is this a current diagnosis for this admission?: Yes Plan: secondary to post obstructive uropathy insert loja catheter urology consult if needed repeat BMP this evening - Time Time Spent with patient: 25-34 minutes
[2017-07-18] MEDS: CARVEDILOL 12.5 MG TABLET PO SCH ×2 (09:23→22:00)
[2017-07-18] MEDS: ASPIRIN 81 MG TABLET, ENT COATED PO SCH (09:23)
[2017-07-18] MEDS: DOCUSATE SODIUM 100 MG CAPSULE PO SCH (09:24)
[2017-07-18] MEDS ORDERED: AMLODIPINE BESYLATE 2.5 MG TABLET PO SCH (10:00)
[2017-07-18 10:39] LABS: APPEARANCE,URINE CLEAR; BILIRUBIN,URINE NEGATIVE (NEGATIVE); COLOR,URINE STRAW; GLUCOSE, URINE NEGATIVE (NEGATIVE); KETONES,URINE NEGATIVE (NEGATIVE); LEUKOCYTE ESTERASE,URINE MODERATE (NEGATIVE); NITRITE,URINE POSITIVE (NEGATIVE); PROTEIN,URINE NEGATIVE (NEGATIVE); URINE SPECIFIC GRAVITY 1.005; UROBILINOGEN,URINE NEGATIVE mg/dL (<2.0)
[2017-07-18 10:59] LABS: URINE AMPHETAMINES SCREEN NEGATIVE; URINE BARBITURATES SCREEN NEGATIVE; URINE BENZODIAZEPINES SCREEN NEGATIVE; URINE MARIJUANA (THC) SCREEN NEGATIVE; URINE METHADONE SCREEN NEGATIVE; URINE PHENCYCLIDINE SCREEN NEGATIVE
[2017-07-18 11:10] LABS: URINE COCAINE SCREEN UNCONFIRMED POSITIVE
[2017-07-18] MEDS: HEPARIN SOD (PORCINE) 5,000 UNIT/ML 1 ML SYRINGE SUBCUT SCH ×2 (11:29→21:40)
--- NOTE | 2017-07-18 12:43 | PDOC PROGRESS REPORT ---
Subjective Progress Note for:: 07/18/17 Subjective:: Patient was seen today laying in his bed. At the time he was concerned because he was going to be getting a catheter placed due to urinary retention from an enlarged prostate. Today he does not complain of chest pain or SOB. His urinating some but there is a decrease in flow. Reason For Visit: ACUTE SYSTOLIC CHF EXACERBATION Physical Exam Vital Signs: Temp Pulse Resp BP Pulse Ox 98.0 F 66 16 139/98 H 95 07/18/17 07:45 07/18/17 11:27 07/18/17 11:27 07/18/17 07:45 07/18/17 11:27 Intake & Output 07/17/17 07/18/17 07/19/17 06:59 06:59 06:59 Intake Total 490 2150 Output Total 300 1600 Balance 190 550 Weight 72 kg 73 kg General appearance: PRESENT: no acute distress, well-developed, well-nourished Mouth exam: PRESENT: neck supple Neck exam: PRESENT: full ROM. ABSENT: JVD Respiratory exam: PRESENT: clear to auscultation jenn. ABSENT: accessory muscle use, crackles, rales, rhonchi, wheezes Cardiovascular exam: PRESENT: +S1, +S2, systolic murmur GI/Abdominal exam: PRESENT: normal bowel sounds, soft. ABSENT: organomegaly, tenderness Extremities exam: ABSENT: pedal edema, tenderness, +1 edema, +2 edema Musculoskeletal exam: PRESENT: normal inspection. ABSENT: tenderness Neurological exam: PRESENT: alert, awake, oriented to person, oriented to place , oriented to time, oriented to situation Psychiatric exam: PRESENT: appropriate affect, normal mood Skin exam: PRESENT: dry, intact, warm Results Laboratory Results: 07/18/17 06:20 07/18/17 07/18/17 06:20 09:45 Sodium 145.3 H Potassium 4.1 Chloride 107 Carbon Dioxide 26 Anion Gap 12 BUN 45 H Creatinine 3.50 H Est GFR ( Amer) 23 L Est GFR (Non-Af Amer) 19 L Glucose 107 Calcium 9.2 Magnesium 2.0 Urine Color STRAW Urine Appearance CLEAR Urine pH 6.0 Ur Specific Almo 1.005 Urine Protein NEGATIVE Urine Glucose (UA) NEGATIVE Urine Ketones NEGATIVE Urine Blood SMALL H Urine Nitrite POSITIVE H Ur Leukocyte Esterase MODERATE H Urine WBC (Auto) 8 Urine RBC (Auto) 1 07/17/17 07/17/17 07/17/17 05:14 12:54 18:55 Troponin I 0.075 0.078 NT-Pro-B Natriuret Pep 35382 H 07/18/17 00:44 Troponin I 0.084 NT-Pro-B Natriuret Pep Impressions: Chest X-Ray 07/16/17 15:31 IMPRESSION: Cardiomegaly with small bilateral pleural effusions. Mild vascular prominence. Renal Ultrasound 07/18/17 00:00 IMPRESSION: NO DOPPLER EVIDENCE OF HEMODYNAMICALLY SIGNIFICANT RENAL ARTERY STENOSIS. Bladder outlet obstruction related to an enlarged prostate. There is debris in the bladder, and moderate to marked bilateral hydronephrosis and hydroureter. Results called to Dr. Flores Vascular Ultrasound 07/18/17 00:00 IMPRESSION: NO DOPPLER EVIDENCE OF HEMODYNAMICALLY SIGNIFICANT RENAL ARTERY STENOSIS. Bladder outlet obstruction related to an enlarged prostate. There is debris in the bladder, and moderate to marked bilateral hydronephrosis and hydroureter. Results called to Dr. Flores Assessment & Plan - Diagnosis (1) Acute on chronic renal failure Is this a current diagnosis for this admission?: Yes Plan: cardiorenal combined with urinary rention due to BPH. At this point he is going to get a catheter placed. Will discontinue the lasix. Baseline creatinine looks to be between 1.7 and 2.0 (2) Acute on chronic combined systolic and diastolic CHF (congestive heart failure) Is this a current diagnosis for this admission?: Yes Plan: at this point and time patient looks to be dry, will discontinue lasix. (3) Hypertension Qualifiers: Hypertension type: essential hypertension Qualified Code(s): I10 - Essential (primary) hypertension Is this a current diagnosis for this admission?: Yes Plan: well controlled (4) Cardiomyopathy Qualifiers: Cardiomyopathy type: unspecified Qualified Code(s): I42.9 - Cardiomyopathy , unspecified Is this a current diagnosis for this admission?: Yes Plan: apparently due to cocaine use (5) Acute kidney injury Is this a current diagnosis for this admission?: Yes Plan: Discontinue lasix and monitor after catheter has been placed. May need saline to keep up with urine output once catheter is placed. - Notes Notes: case was discussed with Dr. Caldwell
[2017-07-18 18:21] LABS: ANION GAP 9 (5-19); BLOOD UREA NITROGEN 44 mg/dL (7-20); CALCIUM 9.6 mg/dL (8.4-10.2); CARBON DIOXIDE 33 mmol/L (22-30); CHLORIDE 102 mmol/L (98-107); GLUCOSE 121 mg/dL (75-110); POTASSIUM 4.2 mmol/L (3.6-5.0); SODIUM 144.4 mmol/L (137-145)
[2017-07-18] MEDS: ACETAMINOPHEN 325 MG TABLET PO PRN (18:39)
[2017-07-19 06:36] LABS: ABSOLUTE LYMPHOCYTES (AUTO) 1.7 10^3/uL (0.5-4.7); ABSOLUTE MONOCYTES (AUTO) 0.7 10^3/uL (0.1-1.4); ABSOLUTE NEUT (AUTO) 3.7 10^3/uL (1.7-8.2); BASOPHILS % (AUTO) 0.7 % (0-2); EOSINOPHILS % (AUTO) 0.6 % (0-6); HEMATOCRIT 34.3 % (37.9-51.0); HEMOGLOBIN 11.4 g/dL (13.5-17.0); LYMPHOCYTES % (AUTO) 28.2 % (13-45); MEAN CORPUSCULAR HEMOGLOBIN 29.4 pg (27.0-33.4); MEAN CORPUSCULAR HGB CONC 33.3 g/dL (32.0-36.0); MEAN CORPUSCULAR VOLUME 88 fl (80-97); MONOCYTES % (AUTO) 10.7 % (3-13); PLATELET COUNT 245 10^3/uL (150-450); RED BLOOD COUNT 3.89 10^6/uL (4.35-5.55); RED CELL DISTRIBUTION WIDTH 14.7 % (11.5-14.0); SEGMENTED NEUTROPHILS % (AUTO) 59.8 % (42-78); TOTAL CELLS COUNTED % (AUTO) 100 %; WHITE BLOOD COUNT 6.1 10^3/uL (4.0-10.5)
[2017-07-19 06:47] LABS: ANION GAP 11 (5-19); BLOOD UREA NITROGEN 40 mg/dL (7-20); CALCIUM 9.4 mg/dL (8.4-10.2); CARBON DIOXIDE 28 mmol/L (22-30); CHLORIDE 103 mmol/L (98-107); GLUCOSE 117 mg/dL (75-110); POTASSIUM 4.2 mmol/L (3.6-5.0); SODIUM 141.6 mmol/L (137-145)
[2017-07-19] MEDS: ACETAMINOPHEN 325 MG TABLET PO PRN (09:34)
[2017-07-19] MEDS: ASPIRIN 81 MG TABLET, ENT COATED PO SCH (09:35)
[2017-07-19] MEDS: DOCUSATE SODIUM 100 MG CAPSULE PO SCH (09:35)
[2017-07-19] MEDS: CARVEDILOL 12.5 MG TABLET PO SCH ×2 (09:35→21:07)
[2017-07-19] MEDS: HEPARIN SOD (PORCINE) 5,000 UNIT/ML 1 ML SYRINGE SUBCUT SCH ×2 (09:36→21:08)
--- NOTE | 2017-07-19 15:16 | PDOC PROGRESS REPORT ---
Subjective Progress Note for:: 07/19/17 Subjective:: Patient was seen today with his by his side. At the time he was complaining of the catheter that was placed yesterday. He was saying that it was causing him to feel like he had to urinate. Yesterday he put out 5L of urine and his blood pressures are currently in the 90s. Reason For Visit: ACUTE SYSTOLIC CHF EXACERBATION Physical Exam Vital Signs: Temp Pulse Resp BP Pulse Ox 99.0 F 72 19 101/68 90 L 07/19/17 11:29 07/19/17 11:29 07/19/17 11:29 07/19/17 11:29 07/19/17 11:29 Intake & Output 07/18/17 07/19/17 07/20/17 06:59 06:59 06:59 Intake Total 2150 854 340 Output Total 1600 5350 550 Balance 892 -0445 -726 Weight 73 kg 71.2 kg General appearance: PRESENT: no acute distress, well-developed, well-nourished Mouth exam: PRESENT: neck supple. ABSENT: moist Neck exam: PRESENT: full ROM. ABSENT: JVD Respiratory exam: PRESENT: clear to auscultation jenn. ABSENT: accessory muscle use, crackles, rales, rhonchi, wheezes Cardiovascular exam: PRESENT: +S1, +S2, systolic murmur GI/Abdominal exam: PRESENT: normal bowel sounds, soft. ABSENT: organomegaly, tenderness Extremities exam: ABSENT: pedal edema, tenderness, +1 edema, +2 edema Musculoskeletal exam: PRESENT: normal inspection. ABSENT: tenderness Neurological exam: PRESENT: alert, awake, oriented to person, oriented to place , oriented to time, oriented to situation Skin exam: PRESENT: dry, intact, warm. ABSENT: cyanosis Results Laboratory Results: 07/19/17 05:45 07/19/17 05:45 07/18/17 07/19/17 07/19/17 18:00 05:45 05:45 WBC 6.1 RBC 3.89 L Hgb 11.4 L Hct 34.3 L MCV 88 MCH 29.4 MCHC 33.3 RDW 14.7 H Plt Count 245 Seg Neutrophils % 59.8 Lymphocytes % 28.2 Monocytes % 10.7 Eosinophils % 0.6 Basophils % 0.7 Absolute Neutrophils 3.7 Absolute Lymphocytes 1.7 Absolute Monocytes 0.7 Absolute Eosinophils 0.0 Absolute Basophils 0.0 Sodium 144.4 141.6 Potassium 4.2 4.2 Chloride 102 103 Carbon Dioxide 33 H 28 Anion Gap 9 11 BUN 44 H 40 H Creatinine 3.66 H 3.09 H Est GFR ( Amer) 21 L 26 L Est GFR (Non-Af Amer) 18 L 22 L Glucose 121 H 117 H Calcium 9.6 9.4 07/17/17 07/17/17 07/17/17 05:14 12:54 18:55 Troponin I 0.075 0.078 NT-Pro-B Natriuret Pep 55808 H 07/18/17 00:44 Troponin I 0.084 NT-Pro-B Natriuret Pep Impressions: Chest X-Ray 07/16/17 15:31 IMPRESSION: Cardiomegaly with small bilateral pleural effusions. Mild vascular prominence. Renal Ultrasound 07/18/17 00:00 IMPRESSION: NO DOPPLER EVIDENCE OF HEMODYNAMICALLY SIGNIFICANT RENAL ARTERY STENOSIS. Bladder outlet obstruction related to an enlarged prostate. There is debris in the bladder, and moderate to marked bilateral hydronephrosis and hydroureter. Results called to Dr. Flores Vascular Ultrasound 07/18/17 00:00 IMPRESSION: NO DOPPLER EVIDENCE OF HEMODYNAMICALLY SIGNIFICANT RENAL ARTERY STENOSIS. Bladder outlet obstruction related to an enlarged prostate. There is debris in the bladder, and moderate to marked bilateral hydronephrosis and hydroureter. Results called to Dr. Flores Assessment & Plan - Diagnosis (1) Acute on chronic renal failure Is this a current diagnosis for this admission?: Yes Plan: looks to be improving, starting normal saline at 150mL an hour for 2L. Currently is in the recovering diuresis phase. Will adjust after 2L to prevent fluid overload (2) Acute on chronic combined systolic and diastolic CHF (congestive heart failure) Is this a current diagnosis for this admission?: Yes Plan: resolved, actually looks to be on the dry side (3) Hypertension Qualifiers: Hypertension type: essential hypertension Qualified Code(s): I10 - Essential (primary) hypertension Is this a current diagnosis for this admission?: Yes Plan: Will hold bp meds for now and give him some NS (4) Cardiomyopathy Qualifiers: Cardiomyopathy type: unspecified Qualified Code(s): I42.9 - Cardiomyopathy , unspecified Is this a current diagnosis for this admission?: Yes Plan: apparently due to cocaine use (5) Acute kidney injury Is this a current diagnosis for this admission?: Yes Plan: Discontinue lasix and catheter has been placed. Start NS at 150mL an hour
[2017-07-19] MEDS: NORMAL SALINE 1000 ML 1,000 ML IV PRN (16:27)
[2017-07-19] MEDS: TAMSULOSIN HCL 0.4 MG CAP.SR.24H PO SCH (18:04)
[2017-07-20] MEDS: NORMAL SALINE 1000 ML 1,000 ML IV PRN (06:34)
[2017-07-20] MEDS: HEPARIN SOD (PORCINE) 5,000 UNIT/ML 1 ML SYRINGE SUBCUT SCH (09:17)
[2017-07-20] MEDS: CARVEDILOL 12.5 MG TABLET PO SCH ×2 (09:17→21:50)
[2017-07-20] MEDS: DOCUSATE SODIUM 100 MG CAPSULE PO SCH (09:17)
[2017-07-20] MEDS: ASPIRIN 81 MG TABLET, ENT COATED PO SCH (09:17)
[2017-07-20] MEDS ORDERED: AMLODIPINE BESYLATE 5 MG TABLET PO SCH (10:00)
[2017-07-20 11:15] LABS: ANION GAP 11 (5-19); BLOOD UREA NITROGEN 33 mg/dL (7-20); CARBON DIOXIDE 27 mmol/L (22-30); CHLORIDE 105 mmol/L (98-107); GLUCOSE 100 mg/dL (75-110); POTASSIUM 4.5 mmol/L (3.6-5.0); SODIUM 143.2 mmol/L (137-145)
--- NOTE | 2017-07-20 12:54 | PDOC PROGRESS REPORT ---
Subjective Progress Note for:: 07/20/17 Reason For Visit: Seen in the hospital today. He is starting to feel better since admission. 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 Feels weak. No symptoms of uremia. Breathing is back to normal. Labs and medications were reviewed. Physical Exam Vital Signs: Temp Pulse Resp BP Pulse Ox 98.1 F 77 18 117/81 99 07/20/17 12:01 07/20/17 12:01 07/20/17 12:01 07/20/17 12:01 07/20/17 12:01 Intake & Output 07/19/17 07/20/17 07/21/17 06:59 06:59 06:59 Intake Total 854 3385 118 Output Total 5350 2400 1000 Balance -4496 985 -882 Weight 71.2 kg 67.9 kg General appearance: PRESENT: no acute distress Respiratory exam: PRESENT: clear to auscultation jenn. ABSENT: crackles, rhonchi Cardiovascular exam: PRESENT: +S1, +S2, systolic murmur GI/Abdominal exam: PRESENT: normal bowel sounds, soft. ABSENT: organomegaly, tenderness Extremities exam: ABSENT: pedal edema Neurological exam: PRESENT: alert, awake, oriented to person, oriented to place Skin exam: ABSENT: cyanosis, erythema, mottled Results Laboratory Results: 07/19/17 05:45 07/20/17 10:08 07/20/17 10:08 Sodium 143.2 Potassium 4.5 Chloride 105 Carbon Dioxide 27 Anion Gap 11 BUN 33 H Creatinine 2.68 H Est GFR ( Amer) 31 L Est GFR (Non-Af Amer) 25 L Glucose 100 Calcium 9.0 07/17/17 07/17/17 07/17/17 05:14 12:54 18:55 Troponin I 0.075 0.078 NT-Pro-B Natriuret Pep [id number] H 07/18/17 00:44 Troponin I 0.084 NT-Pro-B Natriuret Pep Impressions: Chest X-Ray 07/16/17 15:31 IMPRESSION: Cardiomegaly with small bilateral pleural effusions. Mild vascular prominence. Renal Ultrasound 07/18/17 00:00 IMPRESSION: NO DOPPLER EVIDENCE OF HEMODYNAMICALLY SIGNIFICANT RENAL ARTERY STENOSIS. Bladder outlet obstruction related to an enlarged prostate. There is debris in the bladder, and moderate to marked bilateral hydronephrosis and hydroureter. Results called to Dr. Flores Vascular Ultrasound 07/18/17 00:00 IMPRESSION: NO DOPPLER EVIDENCE OF HEMODYNAMICALLY SIGNIFICANT RENAL ARTERY STENOSIS. Bladder outlet obstruction related to an enlarged prostate. There is debris in the bladder, and moderate to marked bilateral hydronephrosis and hydroureter. Results called to Dr. Flores Assessment & Plan - Diagnosis (1) Acute on chronic combined systolic and diastolic CHF (congestive heart failure) Is this a current diagnosis for this admission?: Yes Plan: Resolved. (2) Acute on chronic renal failure Is this a current diagnosis for this admission?: Yes Plan: Nonoliguric. Background of obstructive prostatic uropathy. Status post Durbin catheter and draining good amounts of urine. Renal numbers are getting better.Hold back on the amlodipine for the moment as his blood pressure is on the lower side. Blood pressure needs to be monitored in the long run. Most likely he will need to have it back on once his blood pressure starts to climb up after he goes home and gets back into noncompliance routine as he was admitted to initially.Needs to have catheter in placement and follow with urology as an outpatient. (3) Cardiomyopathy Qualifiers: Cardiomyopathy type: unspecified Qualified Code(s): I42.9 - Cardiomyopathy , unspecified Is this a current diagnosis for this admission?: Yes Plan: Likely cocaine induced. Presently stable and compensated heart failure. (4) Acute kidney injury Is this a current diagnosis for this admission?: Yes Plan: As mentioned earlier. Improving.
--- NOTE | 2017-07-20 14:17 | PDOC PROGRESS REPORT ---
Subjective Progress Note for:: 07/20/17 Subjective:: Patient has no chest pain today ; no abdominal pain does not describe dysuria or bladder fullness states "just urinating very little " No real shortness of breath except when he walks No nausea no vomiting No abdominal discomfort US kidneys consistent with post obstructive uropathy Loja catheter to be inserted 07/20 Feels well has no complaints Admitted yesterday to using cocaine 2 weeks ago Renal function is improving Reason For Visit: ACUTE SYSTOLIC CHF EXACERBATION Physical Exam Vital Signs: Temp Pulse Resp BP Pulse Ox 98.1 F 77 18 117/81 99 07/20/17 12:01 07/20/17 12:01 07/20/17 12:01 07/20/17 12:01 07/20/17 12:01 Intake & Output 07/19/17 07/20/17 07/21/17 00:59 00:59 00:59 Intake Total 912 2125 1388 Output Total 5000 2050 1700 Balance -4088 75 -312 Weight 73 kg 71.2 kg 67.9 kg General appearance: PRESENT: no acute distress, well-developed, well-nourished Head exam: PRESENT: atraumatic Eye exam: PRESENT: conjunctiva pink, EOMI, PERRLA. ABSENT: scleral icterus Neck exam: ABSENT: carotid bruit, JVD, lymphadenopathy, thyromegaly Respiratory exam: PRESENT: clear to auscultation jenn, decreased breath sounds - At the bases. ABSENT: rales, rhonchi, wheezes Cardiovascular exam: PRESENT: RRR. ABSENT: diastolic murmur, rubs, systolic murmur Extremities exam: PRESENT: full ROM. ABSENT: calf tenderness, clubbing, pedal edema Neurological exam: PRESENT: alert, awake, oriented to person, oriented to place , oriented to time, oriented to situation, CN II-XII grossly intact. ABSENT: motor sensory deficit Skin exam: PRESENT: abrasion Results Laboratory Results: 07/19/17 05:45 07/20/17 10:08 07/20/17 10:08 Sodium 143.2 Potassium 4.5 Chloride 105 Carbon Dioxide 27 Anion Gap 11 BUN 33 H Creatinine 2.68 H Est GFR ( Amer) 31 L Est GFR (Non-Af Amer) 25 L Glucose 100 Calcium 9.0 07/17/17 07/17/17 07/17/17 05:14 12:54 18:55 Troponin I 0.075 0.078 NT-Pro-B Natriuret Pep 62075 H 07/18/17 00:44 Troponin I 0.084 NT-Pro-B Natriuret Pep Impressions: Chest X-Ray 07/16/17 15:31 IMPRESSION: Cardiomegaly with small bilateral pleural effusions. Mild vascular prominence. Renal Ultrasound 07/18/17 00:00 IMPRESSION: NO DOPPLER EVIDENCE OF HEMODYNAMICALLY SIGNIFICANT RENAL ARTERY STENOSIS. Bladder outlet obstruction related to an enlarged prostate. There is debris in the bladder, and moderate to marked bilateral hydronephrosis and hydroureter. Results called to Dr. Flores Vascular Ultrasound 07/18/17 00:00 IMPRESSION: NO DOPPLER EVIDENCE OF HEMODYNAMICALLY SIGNIFICANT RENAL ARTERY STENOSIS. Bladder outlet obstruction related to an enlarged prostate. There is debris in the bladder, and moderate to marked bilateral hydronephrosis and hydroureter. Results called to Dr. Flores Assessment & Plan - Diagnosis (1) Acute on chronic combined systolic and diastolic CHF (congestive heart failure) Is this a current diagnosis for this admission?: Yes Plan: lasix drip was initiated Heart failure secondary to fluid overload will d/c lasix drip now as loja is inserted and hopefully renal function will improve with resolution of urinary retention 07/20 CHF well compensated at this time Lasix has been discontinued (2) Cardiomyopathy Qualifiers: Cardiomyopathy type: unspecified Qualified Code(s): I42.9 - Cardiomyopathy , unspecified Is this a current diagnosis for this admission?: Yes (3) Hypertension Qualifiers: Hypertension type: essential hypertension Qualified Code(s): I10 - Essential (primary) hypertension Is this a current diagnosis for this admission?: Yes Plan: controlled Amlodipine is discontinued (4) Acute on chronic renal failure Is this a current diagnosis for this admission?: Yes Plan: secondary to post obstructive uropathy insert loja catheter urology consult if needed repeat BMP this evening 07/20 Renal function improved Patient likely will be discharged on Sunday Baseline creatinine was 1.7 (5) Acute urinary retention Is this a current diagnosis for this admission?: Yes Plan: Flomax has been initiated Patient to be discharged with Loja catheter and leg bag Will be followed in [place] by Dr. Payton urology - Time Time Spent with patient: We will repeat BMP in a.m. Time Spent with patient: 25-34 minutes
[2017-07-20] MEDS: TAMSULOSIN HCL 0.4 MG CAP.SR.24H PO SCH (17:19)
[2017-07-20] MEDS: ACETAMINOPHEN 325 MG TABLET PO PRN (22:01)
[2017-07-21] MEDS: HEPARIN SOD (PORCINE) 5,000 UNIT/ML 1 ML SYRINGE SUBCUT SCH ×3 (03:06→21:28)
[2017-07-21 06:57] LABS: ANION GAP 9 (5-19); BLOOD UREA NITROGEN 24 mg/dL (7-20); CALCIUM 9.1 mg/dL (8.4-10.2); CARBON DIOXIDE 27 mmol/L (22-30); CHLORIDE 107 mmol/L (98-107); GLUCOSE 102 mg/dL (75-110); POTASSIUM 4.3 mmol/L (3.6-5.0); SODIUM 142.7 mmol/L (137-145)
[2017-07-21] MEDS: ASPIRIN 81 MG TABLET, ENT COATED PO SCH (09:03)
[2017-07-21] MEDS: CARVEDILOL 12.5 MG TABLET PO SCH ×2 (09:04→21:28)
[2017-07-21] MEDS: DOCUSATE SODIUM 100 MG CAPSULE PO SCH (09:04)
--- NOTE | 2017-07-21 15:58 | PDOC PROGRESS REPORT ---
Subjective Progress Note for:: 07/21/17 Subjective:: 52 yr old male with ischemic cardiomyopathy s/p AICD, ongoing cocaine use, who presented with CHF exacerbation and acute on chronic renal failure due to obstructive uropathy. No complaints at present. Reason For Visit: ACUTE SYSTOLIC CHF EXACERBATION Physical Exam Vital Signs: Temp Pulse Resp BP Pulse Ox 97.5 F 75 18 119/81 100 07/21/17 11:39 07/21/17 14:00 07/21/17 11:39 07/21/17 11:39 07/21/17 11:39 Intake & Output 07/20/17 07/21/17 07/22/17 06:59 06:59 06:59 Intake Total 3385 1998 912 Output Total 2400 3320 800 Balance 985 -1322 112 Weight 67.9 kg 67.8 kg General appearance: PRESENT: obese Head exam: PRESENT: normocephalic Ear exam: PRESENT: normal external ear exam Mouth exam: PRESENT: moist Neck exam: ABSENT: tracheal deviation Respiratory exam: PRESENT: symmetrical, unlabored. ABSENT: wheezes Cardiovascular exam: PRESENT: RRR GI/Abdominal exam: PRESENT: normal bowel sounds, soft. ABSENT: tenderness Rectal exam: PRESENT: deferred Gentrourinary exam: ABSENT: indwelling catheter Extremities exam: ABSENT: pedal edema Neurological exam: PRESENT: alert, awake, oriented to person, oriented to place Psychiatric exam: PRESENT: appropriate affect Skin exam: ABSENT: petechiae Results Laboratory Results: 07/19/17 05:45 07/21/17 06:08 07/20/17 07/21/17 10:08 06:08 Sodium 142.7 Potassium 4.3 Chloride 107 Carbon Dioxide 27 Anion Gap 9 BUN 24 H Creatinine 2.45 H Est GFR ( Amer) 34 L Est GFR (Non-Af Amer) 28 L Glucose 102 Calcium 9.1 Magnesium 1.9 07/17/17 07/17/17 07/17/17 05:14 12:54 18:55 Troponin I 0.075 0.078 NT-Pro-B Natriuret Pep 46725 H 07/18/17 00:44 Troponin I 0.084 NT-Pro-B Natriuret Pep Impressions: Chest X-Ray 07/16/17 15:31 IMPRESSION: Cardiomegaly with small bilateral pleural effusions. Mild vascular prominence. Renal Ultrasound 07/18/17 00:00 IMPRESSION: NO DOPPLER EVIDENCE OF HEMODYNAMICALLY SIGNIFICANT RENAL ARTERY STENOSIS. Bladder outlet obstruction related to an enlarged prostate. There is debris in the bladder, and moderate to marked bilateral hydronephrosis and hydroureter. Results called to Dr. Flores Vascular Ultrasound 07/18/17 00:00 IMPRESSION: NO DOPPLER EVIDENCE OF HEMODYNAMICALLY SIGNIFICANT RENAL ARTERY STENOSIS. Bladder outlet obstruction related to an enlarged prostate. There is debris in the bladder, and moderate to marked bilateral hydronephrosis and hydroureter. Results called to Dr. Flores Assessment & Plan - Diagnosis (1) Acute systolic CHF (congestive heart failure), NYHA class 4 Is this a current diagnosis for this admission?: Yes Plan: Continue Coreg and Aspirin Lasix and Lisinopril on hold due to worsening renal function. Monitor creatinine. (2) Acute on chronic renal failure Is this a current diagnosis for this admission?: Yes Plan: Hold Lisinopril. Continue to monitor renal function and urine output. maintain Durbin till he sees Urology as an outpatient. (3) Pulmonary edema Qualifiers: Chronicity: acute Qualified Code(s): J81.0 - Acute pulmonary edema Is this a current diagnosis for this admission?: Yes Plan: Improved. (4) DVT prophylaxis Is this a current diagnosis for this admission?: Yes Plan: S/C Heparin (5) Urinary retention due to benign prostatic hyperplasia Is this a current diagnosis for this admission?: Yes Plan: Maintain Durbin. Continue Flomax. - Time Time Spent with patient: 25-34 minutes
[2017-07-21] MEDS: TAMSULOSIN HCL 0.4 MG CAP.SR.24H PO SCH (17:18)
[2017-07-22 06:54] LABS: ANION GAP 10 (5-19); BLOOD UREA NITROGEN 24 mg/dL (7-20); CALCIUM 9.3 mg/dL (8.4-10.2); CARBON DIOXIDE 27 mmol/L (22-30); CHLORIDE 105 mmol/L (98-107); GLUCOSE 112 mg/dL (75-110); POTASSIUM 4.3 mmol/L (3.6-5.0); SODIUM 141.6 mmol/L (137-145)
[2017-07-22 08:20] VITALS: BP 100/71
[2017-07-22] MEDS: ASPIRIN 81 MG TABLET, ENT COATED PO SCH (09:33)
[2017-07-22] MEDS: CARVEDILOL 12.5 MG TABLET PO SCH (09:33)
[2017-07-22] MEDS: DOCUSATE SODIUM 100 MG CAPSULE PO SCH (09:33)
[2017-07-22] MEDS ORDERED: MAGNESIUM OXIDE 400 MG TABLET PO SCH (10:00)
--- NOTE | 2017-07-22 11:01 | PDOC DISCHARGE SUMMARY ---
General - Admit/Disc Date/PCP Admission Date/Primary Care Provider: 07/16/17 17:46 LUIS SILVA JR, MD Nephrology: Dr. Skyler Caldwell Discharge Date: 07/22/17 - Discharge Diagnosis (1) Acute systolic CHF (congestive heart failure), NYHA class 4 Is this a current diagnosis for this admission?: Yes (2) Acute on chronic renal failure Is this a current diagnosis for this admission?: Yes (3) Pulmonary edema Is this a current diagnosis for this admission?: Yes (4) DVT prophylaxis Is this a current diagnosis for this admission?: Yes (5) Urinary retention due to benign prostatic hyperplasia Is this a current diagnosis for this admission?: Yes - Additional Information Resuscitation Status: Full Code Discharge Diet: Cardiac Discharge Activity: Activity As Tolerated, Balance Activity w/Rest, Weigh Daily Prescriptions: Magnesium Oxide [Mag-Ox 400 mg Tablet] 400 mg PO MOWEFR 60 Days #24 tablet Tamsulosin HCl [Flomax 0.4 mg Cap.sr] 0.4 mg PO PCSUPPER 30 Days #30 cap.sr.24h Home Medications: Aspirin [Ecotrin 81 mg EC Tablet] 81 mg PO DAILY tabec 05/03/17 Carvedilol [Coreg 12.5 mg Tablet] 12.5 mg PO Q12 07/16/17 Furosemide [Lasix 20 mg Tablet] 20 mg PO QAM 07/16/17 Aspirin [Ecotrin 81 mg EC Tablet] 81 mg PO DAILY tabec 07/22/17 Carvedilol [Coreg 12.5 mg Tablet] 12.5 mg PO Q12 tablet 07/22/17 Docusate Sodium [Colace 100 mg Capsule] 100 mg PO DAILY capsule 07/22/17 Magnesium Oxide [Mag-Ox 400 mg Tablet] 400 mg PO MOWEFR 60 Days #24 tablet 07/22 Tamsulosin HCl [Flomax 0.4 mg Cap.sr] 0.4 mg PO PCSUPPER 30 Days #30 cap.sr.24h 07/22/17 History of Present Illness History of Present Illness: The patient is a 52-year-old gentleman with a past medical history of Systolic CHF- Ischemic cardiomyopathy. AICD Hypertension Stage III chronic kidney disease Echocardiogram in April 2017 showed a left ventricular ejection fraction less than 20% Mild to moderate diastolic dysfunction. Mild to moderate pulmonary hypertension. He presented to the hospital today with a one-week history of progressively worsening dyspnea on exertion orthopnea PND. In the emergency room he was found to have small bilateral pleural effusions and increased pulmonary vascular congestion on chest x-ray. He was also noted to have worsening kidney function. Outpatient medications: Lisinopril 20 mg daily Lasix 20 mg daily- has been taking 40 mg daily for the past 4 days per instructions due to dyspnea Spironolactone 25 mg po daily Coreg 12.5 mg PO BID Aspirin 81 mg PO daily. Denied Chest pain. No AICD firing. Code status Full code. Healthcare POA is his mounika Palma phone number [phone], [phone]. He was found to have urinary retention and a Durbin was placed and he was started on Flomax. Acute renal failure on top of CKD was though to be due to a combination of Cardiopulmonary syndrome and obstructive uropathy. Renal US showed no hydronephrosis. Renal artery US showed no stenosis. He was seen in consulation by Dr. Skyler Caldwell from the Nephrology service. Lisinopril and Spironolactone were held. He was initially treated with lasix for pulmonary edema. Lasix was later discontinued due to worsening renal function. His urine drug screen was positive for cocaine. He is doing well and is stable for discharge Hospital Course Hospital Course: As above. Follow up: PCP Dr. Luis Silva in 1 week Urology in 1 week- Dr. Ross Payton Nephrology Dr. Skyler Caldwell in 1 week BMP on 07/26/17 Physical Exam Vital Signs: Temp Pulse Resp BP Pulse Ox 98.3 F 61 16 100/71 98 07/22/17 08:17 07/22/17 08:17 07/22/17 08:17 07/22/17 08:17 07/22/17 08:17 Intake & Output 07/21/17 07/22/17 07/23/17 06:59 06:59 06:59 Intake Total 1997 2708 Output Total 5429 0472 Balance -1322 -216 Weight 67.8 kg 67.8 kg General appearance: PRESENT: no acute distress Eye exam: ABSENT: scleral icterus Ear exam: PRESENT: normal external ear exam Mouth exam: PRESENT: moist Respiratory exam: PRESENT: symmetrical, unlabored. ABSENT: crackles, wheezes Cardiovascular exam: PRESENT: RRR Gentrourinary exam: PRESENT: indwelling catheter Results Laboratory Results: 07/19/17 05:45 07/22/17 05:57 07/22/17 05:57 Sodium 141.6 Potassium 4.3 Chloride 105 Carbon Dioxide 27 Anion Gap 10 BUN 24 H Creatinine 2.38 H Est GFR ( Amer) 35 L Est GFR (Non-Af Amer) 29 L Glucose 112 H Calcium 9.3 Phosphorus 4.0 Magnesium 1.8 07/17/17 07/17/17 07/17/17 05:14 12:54 18:55 Troponin I 0.075 0.078 NT-Pro-B Natriuret Pep 81442 H 07/18/17 00:44 Troponin I 0.084 NT-Pro-B Natriuret Pep Impressions: Chest X-Ray 07/16/17 15:31 IMPRESSION: Cardiomegaly with small bilateral pleural effusions. Mild vascular prominence. Renal Ultrasound 07/18/17 00:00 IMPRESSION: NO DOPPLER EVIDENCE OF HEMODYNAMICALLY SIGNIFICANT RENAL ARTERY STENOSIS. Bladder outlet obstruction related to an enlarged prostate. There is debris in the bladder, and moderate to marked bilateral hydronephrosis and hydroureter. Results called to Dr. Flores Vascular Ultrasound 07/18/17 00:00 IMPRESSION: NO DOPPLER EVIDENCE OF HEMODYNAMICALLY SIGNIFICANT RENAL ARTERY STENOSIS. Bladder outlet obstruction related to an enlarged prostate. There is debris in the bladder, and moderate to marked bilateral hydronephrosis and hydroureter. Results called to Dr. Flores Qualifiers - * PATIENT BEING DISCHARGED WITH ANY OF THE FOLLOWING DIAGNOSIS: No Plan Time Spent: Greater than 30 Minutes
== END 2017-07-22 11:59 | disposition home or self-care (01) | DRG 291 ==
LOC: ER 14:12 → EH 17:46 → 3S 19:57
PROVIDERS: ADMIT Internal Medicine; ATTEND Internal Medicine
DX: I13.0 Hypertensive heart and chronic kidney disease with heart failure and stage 1 through stage 4 chronic kidney disease, or unspecified chronic kidney disease (principal); I50.43 Acute on chronic combined systolic (congestive) and diastolic (congestive) heart failure; N17.9 Acute kidney failure, unspecified; N18.3 Chronic kidney disease, stage 3 (moderate); I42.9 Cardiomyopathy, unspecified; N40.1 Benign prostatic hyperplasia with lower urinary tract symptoms; R33.8 Other retention of urine; F15.90 Other stimulant use, unspecified, uncomplicated; F14.90 Cocaine use, unspecified, uncomplicated; F19.90 Other psychoactive substance use, unspecified, uncomplicated; F17.210 Nicotine dependence, cigarettes, uncomplicated; Z72.89 Other problems related to lifestyle
CPT/HCPCS: 36415; 71046; 76770; 80048; 80307; 81001; 83735; 83880; 84100; 84443; 84484; 85025; 93005; 93010; 93976; 99285; J1644; J1650; J1940; J3490; J7030; J7050

== ENCOUNTER 2018-04-10 12:22 | Emergency (ER) | payer MEDICAID ==
--- NOTE | 2018-04-10 13:15 | ER Document Report ---
ED Medical Screen (RME) - General Chief Complaint: Chest Pain Stated Complaint: DIZZINESS Time Seen by Provider: 04/10/18 13:10 Primary Care Provider: LUIS SILVA JR, MD [Primary Care Provider] - Follow up as needed Notes: Patient is a 53-year-old male with CHF that presents to the emergency department for chief complaint of shortness of breath, cough and chest pain. Patient states his been having chest pain on and off for the past 2 days, describes it as the middle of his chest, aching in nature. ROS: Other than noted above, the 12 point review of systems was reviewed with the patient and were negative, all pertinent findings are included in the HPI. PHYSICAL EXAMINATION: Vital signs reviewed. GENERAL: well-nourished and in no acute distress. HEAD: Atraumatic, normocephalic. EYES: Pupils equal round extraocular movements intact, conjunctiva are normal. ENT: Nares patent NECK: Normal range of motion CV: Heart regular rate and rhythm LUNGS: No respiratory distress Musculoskeletal: Normal range of motion NEUROLOGICAL: Normal speech PSYCH: Normal mood, normal affect. MDM: Patient seen and examined for rapid initial assessment. Vital signs reviewed. A comprehensive ED assessment and evaluation of the patient, analysis of test results and completion of the medical decision making process will be conducted by additional ED providers. *Note is created using voice recognition software and may contain spelling, syntax or grammatical errors. TRAVEL OUTSIDE OF THE [place] IN LAST 30 DAYS: No - Related Data Allergies/Adverse Reactions: No Known Allergies Allergy (Verified 04/10/18 12:26) Past Medical History - Social History Chew tobacco use (# tins/day): No Frequency of alcohol use: Occasional Drug Abuse: None - Past Medical History Cardiac Medical History: Reports: Hx Congestive Heart Failure, Hx Heart Attack, Hx Hypertension Renal/ Medical History: Denies: Hx Peritoneal Dialysis Psychiatric Medical History: Denies: Hx Depression Past Surgical History: Reports: Hx Internal Defibrillator - On 11/22/2025, Hx Urinary Tract Surgery - prostate - Immunizations History of Influenza Vaccine for 12/2016 - 05/2017 Season: Refused Physical Exam - Vital signs Vitals: Temp Pulse Resp BP Pulse Ox 97.9 F 64 16 89/63 L 100 04/10/18 12:55 04/10/18 12:55 04/10/18 12:55 04/10/18 12:55 04/10/18 12:55 Course - Vital Signs Vital signs: Temp Pulse Resp BP Pulse Ox 97.9 F 64 16 89/63 L 100 04/10/18 12:55 04/10/18 12:55 04/10/18 12:55 04/10/18 12:55 04/10/18 12:55 Doctor's Discharge - Discharge Referrals: LUIS SILVA JR, MD [Primary Care Provider] - Follow up as needed
[2018-04-10] MEDS ORDERED: NORMAL SALINE 500 ML IV ONE (13:16)
[2018-04-10 13:56] LABS: ABSOLUTE EOSINOPHILS # (AUTO) 0.1 10^3/uL (0.0-0.6); ABSOLUTE LYMPHOCYTES (AUTO) 1.6 10^3/uL (0.5-4.7); ABSOLUTE MONOCYTES (AUTO) 0.4 10^3/uL (0.1-1.4); ABSOLUTE NEUT (AUTO) 1.5 10^3/uL (1.7-8.2); BASOPHILS % (AUTO) 1.1 % (0-2); EOSINOPHILS % (AUTO) 1.5 % (0-6); HEMATOCRIT 37.9 % (37.9-51.0); HEMOGLOBIN 12.8 g/dL (13.5-17.0); LYMPHOCYTES % (AUTO) 44.7 % (13-45); MEAN CORPUSCULAR HGB CONC 33.8 g/dL (32.0-36.0); MEAN CORPUSCULAR VOLUME 89 fl (80-97); MONOCYTES % (AUTO) 11.8 % (3-13); PLATELET COUNT 209 10^3/uL (150-450); RED BLOOD COUNT 4.28 10^6/uL (4.35-5.55); RED CELL DISTRIBUTION WIDTH 14.9 % (11.5-14.0); SEGMENTED NEUTROPHILS % (AUTO) 40.9 % (42-78); TOTAL CELLS COUNTED % (AUTO) 100 %; WHITE BLOOD COUNT 3.7 10^3/uL (4.0-10.5)
--- NOTE | 2018-04-10 14:00 | RADIOLOGY REPORT (SQ) ---
EXAM DESCRIPTION: CHEST SINGLE VIEW COMPLETED DATE/TIME: 04/10/2018 1:49 pm REASON FOR STUDY: chest pain, shortness of breath COMPARISON: 07/16/2017 EXAM PARAMETERS: NUMBER OF VIEWS: One view. TECHNIQUE: Single frontal radiographic view of the chest acquired. RADIATION DOSE: NA LIMITATIONS: None. FINDINGS: LUNGS AND PLEURA: No opacities, masses or pneumothorax. No pleural effusion. MEDIASTINUM AND HILAR STRUCTURES: No masses. Contour normal. HEART AND VASCULAR STRUCTURES: Cardiomegaly with left chest single lead defibrillator BONES: No acute findings. HARDWARE: None in the chest. OTHER: No other significant finding. IMPRESSION: Cardiomegaly without acute abnormality of the lungs. TECHNICAL DOCUMENTATION: JOB ID: [id number] [employer]- All Rights Reserved Reading location - IP/workstation name: [email or web address]
[2018-04-10 14:03] LABS: ALANINE AMINOTRANSFERASE 41 U/L (21-72); ALBUMIN 4.1 g/dL (3.5-5.0); ALKALINE PHOSPHATASE 85 U/L (38-126); ANION GAP 10 (5-19); ASPARTATE AMINO TRANSFERASE 34 U/L (17-59); BILIRUBIN,DIRECT 0.1 mg/dL (0.0-0.4); BILIRUBIN,TOTAL 1.5 mg/dL (0.2-1.3); BLOOD UREA NITROGEN 26 mg/dL (7-20); CALCIUM 9.2 mg/dL (8.4-10.2); CARBON DIOXIDE 31 mmol/L (22-30); CHLORIDE 99 mmol/L (98-107); CREATINE KINASE 138 U/L (55-170); GLUCOSE 92 mg/dL (75-110); POTASSIUM 4.7 mmol/L (3.6-5.0); SODIUM 140.4 mmol/L (137-145); TOTAL PROTEIN 6.6 g/dL (6.3-8.2)
[2018-04-10 14:16] LABS: CREATINE KINASE MB 1.03 ng/mL (<4.55)
[2018-04-10 14:19] LABS: TROPONIN I 0.041 ng/mL
[2018-04-10] MEDS ORDERED: ASPIRIN 81 MG TABLET, CHEWABLE PO ONE (15:11)
[2018-04-10] MEDS ORDERED: MORPHINE SULFATE 10 MG/ML INJ IV ONE (17:41)
[2018-04-10] MEDS ORDERED: ONDANSETRON HCL INJ/PF 4 MG/2 ML SDV IV ONE (17:41)
[2018-04-10] MEDS ORDERED: FENTANYL CITRATE INJ/PF 100 MCG/2 ML AMPUL IV ONE (17:44)
--- NOTE | 2018-04-10 17:45 | ER Document Report ---
ED General - General Chief Complaint: Chest Pain Stated Complaint: DIZZINESS Time Seen by Provider: 04/10/18 13:10 Primary Care Provider: LUIS SILVA JR, MD [Primary Care Provider] - Follow up tomorrow Mode of Arrival: Ambulatory Information source: Patient, Relative, [facility] Records Notes: 53-year-old male with congestive heart failure requiring a defibrillator, hyper tension presents with complaint of chest pain that started 2 days prior to arrival. Pain is located in the substernal region described as a sharp intermittent pain. Patient reports associated shortness of breath that is at his baseline. He denies any defibrillator firing. Patient admits to recent cocaine use within the last week. TRAVEL OUTSIDE OF THE [place] IN LAST 30 DAYS: No - HPI Onset: Other Onset/Duration: Sudden, Intermittent Quality of pain: Sharp Severity: Moderate Associated symptoms: Chest pain, Nausea, Vomiting, Shortness of breath - Chronic, unchanged Exacerbated by: Denies Relieved by: Denies Similar symptoms previously: Yes Recently seen / treated by doctor: No - Related Data Allergies/Adverse Reactions: No Known Allergies Allergy (Verified 04/10/18 12:26) Past Medical History - General Information source: Patient, Friend, [facility] Records - Social History Smoking Status: Current Every Day Smoker Cigarette use (# per day): Yes - 3 Chew tobacco use (# tins/day): No Smoking Education Provided: Yes - Smoking cessation counseling was provided for 4 minutes at the bedside Frequency of alcohol use: Occasional Drug Abuse: Cocaine Lives with: Spouse/Significant other Family History: CAD Patient has suicidal ideation: No Patient has homicidal ideation: No - Past Medical History Cardiac Medical History: Reports: Hx Congestive Heart Failure, Hx Heart Attack, Hx Hypertension Renal/ Medical History: Denies: Hx Peritoneal Dialysis Psychiatric Medical History: Denies: Hx Depression Past Surgical History: Reports: Hx Internal Defibrillator - On 11/22/2025, Hx Urinary Tract Surgery - prostate Review of Systems - Review of Systems Notes: REVIEW OF SYSTEMS: CONSTITUTIONAL : Denies fever, chills, or sweats. Denies recent illness. Denies weight loss, recent hospitalizations. EENT: Denies visual changes, eye pain. Denies sore throat, oral lesions, difficulty swallowing. CARDIOVASCULAR: Denies palpitations. Denies lower extremity edema. RESPIRATORY: Denies cough. Denies wheezing. GASTROINTESTINAL: Denies abdominal pain or distention. Denies nausea, vomiting, or diarrhea. Denies blood in vomitus, stools, or per rectum. Denies black, tarry stools. Denies constipation. GENITOURINARY: Denies difficulty urinating, painful urination, frequency, blood in urine, testicular pain or penile discharge. MUSCULOSKELETAL: Denies back or neck pain or stiffness. Denies joint pain or swelling. SKIN: Denies rash, lesions or sores. HEMATOLOGIC : Denies easy bruising or bleeding. LYMPHATIC: Denies swollen glands. NEUROLOGICAL: Denies confusion or altered mental status. Denies loss of consciousness. Denies dizziness or lightheadedness. Denies headache. Denies weakness or paralysis. Denies problems difficulty with ambulation, slurred speech. Denies sensory loss, numbness, or tingling. Denies seizures. PSYCHIATRIC: Denies anxiety or stress. Denies depression, suicidal ideation, or Physical Exam - Vital signs Vitals: Temp Pulse Resp BP Pulse Ox 97.9 F 64 16 89/63 L 100 04/10/18 12:55 04/10/18 12:55 04/10/18 12:55 04/10/18 12:55 04/10/18 12:55 - Notes Notes: PHYSICAL EXAMINATION: GENERAL: Well-appearing, well-nourished and in no acute distress. HEAD: Atraumatic, normocephalic. EYES: Pupils equal round and reactive to light, extraocular movements intact, sclera anicteric, conjunctiva are normal. ENT: Nares patent, oropharynx clear without exudates. Moist mucous membranes. NECK: Normal range of motion, supple without lymphadenopathy LUNGS: Breath sounds clear to auscultation bilaterally and equal. No wheezes rales or rhonchi. Defibrillator left upper lung field. No associated erythema HEART: Regular rate and rhythm without murmurs ABDOMEN: Soft, nontender, nondistended abdomen. No guarding, no rebound. No masses appreciated. Musculoskeletal: Normal range of motion, no pitting or edema. No cyanosis. NEUROLOGICAL: Cranial nerves grossly intact. Normal speech, normal gait. Normal sensory, motor exams PSYCH: Normal mood, normal affect. SKIN: Warm, Dry, normal turgor, no rashes or lesions noted. Course - Re-evaluation Re-evalutation: Laboratory 04/10/18 04/10/18 04/10/18 13:29 13:29 13:29 WBC 3.7 L RBC 4.28 L Hgb 12.8 L Hct 37.9 MCV 89 MCH 30.0 MCHC 33.8 RDW 14.9 H Plt Count 209 Seg Neutrophils % 40.9 L Lymphocytes % 44.7 Monocytes % 11.8 Eosinophils % 1.5 Basophils % 1.1 Absolute Neutrophils 1.5 L Absolute Lymphocytes 1.6 Absolute Monocytes 0.4 Absolute Eosinophils 0.1 Absolute Basophils 0.0 Sodium 140.4 Potassium 4.7 Chloride 99 Carbon Dioxide 31 H Anion Gap 10 BUN 26 H Creatinine 2.26 H Est GFR ( Amer) 37 L Est GFR (Non-Af Amer) 31 L Glucose 92 Calcium 9.2 Total Bilirubin 1.5 H Direct Bilirubin 0.1 Neonat Total Bilirubin Not Reportable Neonat Direct Bilirubin Not Reportable Neonat Indirect Bili Not Reportable AST 34 ALT 41 Alkaline Phosphatase 85 Creatine Kinase 138 CK-MB (CK-2) 1.03 Troponin I 0.041 NT-Pro-B Natriuret Pep Total Protein 6.6 Albumin 4.1 04/10/18 04/10/18 04/10/18 13:29 17:00 20:47 WBC RBC Hgb Hct MCV MCH MCHC RDW Plt Count Seg Neutrophils % Lymphocytes % Monocytes % Eosinophils % Basophils % Absolute Neutrophils Absolute Lymphocytes Absolute Monocytes Absolute Eosinophils Absolute Basophils Sodium Potassium Chloride Carbon Dioxide Anion Gap BUN Creatinine Est GFR ( Amer) Est GFR (Non-Af Amer) Glucose Calcium Total Bilirubin Direct Bilirubin Neonat Total Bilirubin Neonat Direct Bilirubin Neonat Indirect Bili AST ALT Alkaline Phosphatase Creatine Kinase CK-MB (CK-2) Troponin I 0.043 0.038 NT-Pro-B Natriuret Pep 77684 H Total Protein Albumin Chest X-Ray 04/10/18 13:15 IMPRESSION: Cardiomegaly without acute abnormality of the lungs. Temp Pulse Resp BP Pulse Ox 97.9 F 64 16 89/63 L 100 04/10/18 12:55 04/10/18 12:55 04/10/18 12:55 04/10/18 12:55 04/10/18 12:55 04/10/18 19:20 Bedside ultrasound was performed and showed no pericardial effusion but severely reduced contractility. Lungs were also scanned and showed no B-lines, consistent A lines which is not consistent with interstitial edema. [facility] was contacted regarding patient's discharge troponin. EKG shows diffuse T wave inversion which is unchanged from previous EKG. 04/10/18 20:38 Patient reevaluated and is now chest pain-free. After receiving morphine, Zofran. 04/10/18 21:55 Previous medical records reviewed and patient does have a history chronically elevated troponin. Troponin was trended x3 and is downtrending. Discussed the importance of sustaining from cocaine use. Patient assures me that he has not used cocaine in approximately 1 week. Patient was evaluated and treated as appropriate for the patient's presenting symptoms and complaint, with consideration of any critical or life threatening conditions that may be associated with their obtained history and exam as noted above. All results were discussed with patient. Patient provided the opportunity to ask questions, and express concerns. Patient was educated on treatments based on their presumed diagnosis as noted above. At this time we will discharge the patient with return precautions and follow-up recommendations. Verbal discharge instructions given a the bedside. Medication warnings reviewed. Patient is in agreement with this plan and has verbalized understanding of return precautions. After careful consideration I feel that that patient can be safely discharged from the emergency department, they were advised to followup with a primary care physician in 2-3 days. Dictation on this chart was performed using voice recognition software and may result in unintended grammatical, spelling, syntax or errors. 04/10/18 22:00 04/11/18 01:48 - Vital Signs Vital signs: Temp Pulse Resp BP Pulse Ox 98.1 F 64 18 127/82 H 99 04/10/18 22:03 04/10/18 12:55 04/10/18 22:03 04/10/18 22:03 04/10/18 22:03 - Laboratory Result Diagrams: 04/10/18 13:29 04/10/18 13:29 Laboratory results interpreted by me: 04/10/18 04/10/18 04/10/18 13:29 13:29 13:29 WBC 3.7 L RBC 4.28 L Hgb 12.8 L RDW 14.9 H Seg Neutrophils % 40.9 L Absolute Neutrophils 1.5 L Carbon Dioxide 31 H BUN 26 H Creatinine 2.26 H Est GFR ( Amer) 37 L Est GFR (Non-Af Amer) 31 L Total Bilirubin 1.5 H NT-Pro-B Natriuret Pep 52923 H - Diagnostic Test Radiology reviewed: Image reviewed, Reports reviewed - EKG Interpretation by Me EKG shows normal: Sinus rhythm Rate: Normal Rhythm: NSR Voltage: Consistant with LVH When compared to previous EKG there are: No significant change - Diffuse T wave inversion unchanged from previous. Additional EKG results interpreted by me: 04/10/18 22:18 Repeat EKG obtained at 2200 and unchanged from previous. Discharge - Discharge Clinical Impression: Acute systolic CHF (congestive heart failure), NYHA class 4, Acute kidney injury Chest pain Qualifiers: Chest pain type: unspecified Qualified Code(s): R07.9 - Chest pain, unspecified Condition: Good Disposition: HOME, SELF-CARE Instructions: Chest Pain of Unclear Cause ([facility]) Prescriptions: Tramadol HCl [Ultram 50 mg Tablet] 50 mg PO Q8H PRN #10 tablet PRN Reason: For Pain Scale 2-3 Forms: Smoking Cessation Education, Elevated Blood Pressure Referrals: LUIS SILVA JR, MD [Primary Care Provider] - Follow up tomorrow
--- NOTE | 2018-04-10 21:07 | EKG REPORT ---
SEVERITY:- ABNORMAL ECG - SINUS RHYTHM PROBABLE LEFT ATRIAL ABNORMALITY LVH WITH SECONDARY REPOLARIZATION ABNORMALITY ABNORMAL T, PROBABLE ISCHEMIA, LATERAL LEADS PROLONGED QT INTERVAL : Confirmed by: Raul Sherwood 10-Apr-2018 21:06:10
[2018-04-10 22:21] VITALS: BP 127/82
--- NOTE | 2018-04-10 22:48 | EKG REPORT ---
SEVERITY:- ABNORMAL ECG - SINUS RHYTHM FIRST DEGREE AV BLOCK LVH WITH IVCD AND SECONDARY REPOL ABNRM : Confirmed by: Raul Sherwood 10-Apr-2018 22:48:22
== END 2018-04-10 22:37 | disposition home or self-care (01) ==
LOC: ER 12:22
DX: I50.21 Acute systolic (congestive) heart failure (principal); N17.9 Acute kidney failure, unspecified; R07.9 Chest pain, unspecified; I11.0 Hypertensive heart disease with heart failure; R42 Dizziness and giddiness; R06.02 Shortness of breath; F14.90 Cocaine use, unspecified, uncomplicated; R11.2 Nausea with vomiting, unspecified; F17.210 Nicotine dependence, cigarettes, uncomplicated
CPT/HCPCS: 93005; 99406; 99285; 96374; 96375; 36415; 82553; 82550; 85025; 80053; 84484; 83880; 71045; 93010; J3010; J2405; J7040

== ENCOUNTER 2018-07-24 09:30 | Emergency (ER) | payer MEDICAID ==
[2018-07-24] MEDS ORDERED: ASPIRIN 81 MG TABLET, CHEWABLE PO ONE (10:31)
--- NOTE | 2018-07-24 10:34 | ER Document Report ---
ED Medical Screen (RME) - General Chief Complaint: Dizziness Stated Complaint: FALL/DIZZINESS Time Seen by Provider: 07/24/18 10:24 Primary Care Provider: LUIS SILVA JR, MD [Primary Care Provider] - Follow up as needed Mode of Arrival: Ambulatory Information source: Patient TRAVEL OUTSIDE OF THE [place] IN LAST 30 DAYS: No - HPI Patient complains to provider of: DIZZINESS Notes: 07/24/18 10:32 Patient here with complaints of dizziness. Patient has a history of a defibrillator/pacemaker. Schedulize. States that this morning he had 2 episodes that when he stepped to the left he got off balance, dizzy and fell. 7 2 separate times. Right now he feels completely fine and denies any dizziness. No chest pain or shortness of breath at this time. Exam Nontoxic, no distress. Lungs clear and equal throughout. Heart sounds normal. Nonfocal neuro exam. Normal cerebellar exam. Plan CBC, CMP, CPK, CK-MB, troponin, EKG, chest x-ray, pacemaker interrogation. An initial examination was made on the patient as part of the triage process, and it was determined a more comprehensive evaluation was necessary. Initial labs were ordered and patient was transferred to another provider in the ED who assumed care and finished evaluation and plan. - Related Data Allergies/Adverse Reactions: No Known Allergies Allergy (Verified 07/24/18 10:29) Past Medical History - Social History Chew tobacco use (# tins/day): No Frequency of alcohol use: Occasional Drug Abuse: None - Past Medical History Cardiac Medical History: Reports: Hx Congestive Heart Failure, Hx Heart Attack, Hx Hypertension Renal/ Medical History: Denies: Hx Peritoneal Dialysis Psychiatric Medical History: Denies: Hx Depression Past Surgical History: Reports: Hx Cardiac Surgery - pacer/defib, Hx Internal Defibrillator - On 11/22/2025, Hx Urinary Tract Surgery - prostate - Immunizations History of Influenza Vaccine for 12/2016 - 05/2017 Season: Refused Physical Exam - Vital signs Vitals: Temp Pulse Resp BP Pulse Ox 97.4 F 74 16 148/111 H 98 07/24/18 09:45 07/24/18 09:45 07/24/18 09:45 07/24/18 09:45 07/24/18 09:45 Course - Vital Signs Vital signs: Temp Pulse Resp BP Pulse Ox 97.4 F 74 16 148/111 H 98 07/24/18 09:45 07/24/18 09:45 07/24/18 09:45 07/24/18 09:45 07/24/18 09:45 Doctor's Discharge - Discharge Referrals: LUIS SILVA JR, MD [Primary Care Provider] - Follow up as needed
--- NOTE | 2018-07-24 11:02 | RADIOLOGY REPORT (SQ) ---
EXAM DESCRIPTION: CHEST SINGLE VIEW COMPLETED DATE/TIME: 07/24/2018 10:52 am REASON FOR STUDY: DIZZINESS COMPARISON: 04/10/2018 NUMBER OF VIEWS: One view. TECHNIQUE: Single frontal radiographic view of the chest acquired. LIMITATIONS: None. FINDINGS: LUNGS AND PLEURA: No opacities, masses or pneumothorax. No pleural effusion. MEDIASTINUM AND HILAR STRUCTURES: No masses. Contour normal. HEART AND VASCULAR STRUCTURES: Heart is slightly enlarged. No failure. BONES: No acute findings. HARDWARE: Battery pack and lead are in place. OTHER: No other significant finding. IMPRESSION: NO SIGNIFICANT RADIOGRAPHIC FINDING IN THE CHEST. TECHNICAL DOCUMENTATION: JOB ID: [id number]- All Rights Reserved Reading location - IP/workstation name: [email or web address]
--- NOTE | 2018-07-24 11:21 | EKG REPORT ---
SEVERITY:- ABNORMAL ECG - SINUS RHYTHM PROBABLE LEFT ATRIAL ABNORMALITY LEFT AXIS DEVIATION LVH WITH SECONDARY REPOLARIZATION ABNORMALITY ABNORMAL T, PROBABLE ISCHEMIA, LATERAL LEADS BORDERLINE PROLONGED QT INTERVAL : Confirmed by: Raul Sherwood 24-Jul-2018 11:21:06
[2018-07-24 11:27] LABS: ABSOLUTE EOSINOPHILS # (AUTO) 0.1 10^3/uL (0.0-0.6); ABSOLUTE LYMPHOCYTES (AUTO) 1.7 10^3/uL (0.5-4.7); ABSOLUTE MONOCYTES (AUTO) 0.4 10^3/uL (0.1-1.4); ABSOLUTE NEUT (AUTO) 1.8 10^3/uL (1.7-8.2); BASOPHILS % (AUTO) 0.8 % (0-2); EOSINOPHILS % (AUTO) 1.8 % (0-6); HEMATOCRIT 42.7 % (37.9-51.0); HEMOGLOBIN 14.1 g/dL (13.5-17.0); LYMPHOCYTES % (AUTO) 42.4 % (13-45); MEAN CORPUSCULAR HEMOGLOBIN 30.2 pg (27.0-33.4); MEAN CORPUSCULAR HGB CONC 33.1 g/dL (32.0-36.0); MEAN CORPUSCULAR VOLUME 91 fl (80-97); PLATELET COUNT 194 10^3/uL (150-450); RED BLOOD COUNT 4.68 10^6/uL (4.35-5.55); RED CELL DISTRIBUTION WIDTH 14.5 % (11.5-14.0); TOTAL CELLS COUNTED % (AUTO) 100 %; WHITE BLOOD COUNT 3.9 10^3/uL (4.0-10.5)
[2018-07-24 11:44] LABS: ALANINE AMINOTRANSFERASE 52 U/L (21-72); ALKALINE PHOSPHATASE 98 U/L (38-126); ANION GAP 9 (5-19); ASPARTATE AMINO TRANSFERASE 26 U/L (17-59); BILIRUBIN,DIRECT 0.2 mg/dL (0.0-0.4); BILIRUBIN,TOTAL 1.1 mg/dL (0.2-1.3); BLOOD UREA NITROGEN 26 mg/dL (7-20); CALCIUM 9.5 mg/dL (8.4-10.2); CARBON DIOXIDE 29 mmol/L (22-30); CHLORIDE 105 mmol/L (98-107); CREATINE KINASE 116 U/L (55-170); GLUCOSE 82 mg/dL (75-110); POTASSIUM 4.3 mmol/L (3.6-5.0); SODIUM 143.1 mmol/L (137-145); TOTAL PROTEIN 7.2 g/dL (6.3-8.2)
[2018-07-24 11:56] LABS: CREATINE KINASE MB 1.28 ng/mL (<4.55)
[2018-07-24 12:00] LABS: TROPONIN I 0.066 ng/mL
--- NOTE | 2018-07-24 13:14 | ER Document Report ---
Addendum entered and electronically signed by ELVIS RICHARD PA-C 07/24/18 14:14: Course - Re-evaluation Re-evalutation: 07/24/18 14:14 EKG unremarkable. Similar to previous w/o significant ST-T changes and is in NSR. LVH noted, not acute. - Vital Signs Vital signs: Temp Pulse Resp BP Pulse Ox 97.4 F 57 L 16 129/100 H 98 07/24/18 09:45 07/24/18 13:43 07/24/18 09:45 07/24/18 13:43 07/24/18 09:45 - Laboratory Result Diagrams: 07/24/18 11:05 07/24/18 11:05 Laboratory results interpreted by me: 07/24/18 07/24/18 11:05 11:05 WBC 3.9 L RDW 14.5 H BUN 26 H Creatinine 1.88 H Est GFR ( Amer) 46 L Est GFR (Non-Af Amer) 38 L Original Note: ED General - General Chief Complaint: Dizziness Stated Complaint: FALL/DIZZINESS Time Seen by Provider: 07/24/18 10:24 Primary Care Provider: LUIS SILVA JR, MD [NO LOCAL MD] - Follow up as needed Mode of Arrival: Ambulatory TRAVEL OUTSIDE OF THE [place] IN LAST 30 DAYS: No - HPI Notes: Patient is a 53-year-old male with a history of hypertension and congestive heart failure requiring defibrillator, [employer], who presents complaining of having 2 falls this morning at his home. Patient states that he was walking towards his closet and all of a sudden just took a step and fell into the clothes basket. Patient states that he is on the bed for a minute and then got up and started walking towards the closet again and this time fell into the wall. Patient states he did not have any loss of conscious. Contrary to what was written and said it triage, patient states that he does not and did not have any dizziness associated. Patient states that he just lost balance when he fell, but does not have a specific reason as to why. Patient states that he has been feeling well otherwise. He is currently asymptomatic. Patient states that he did not have any precipitating or associated symptoms. He is eating and drinking without difficulties. He is urinating normally and having normal bowel movements. Last use of cocaine by inhalation was 3 days ago. Patient denies IV drug abuse. He has no other concerns or complaints. Denies any headache, fever, head injury, neck pain, changes in vision/speech/mentation/hearing, URI, sore throat, chest pain, palpitations, syncope, cough, shortness of breath, wheeze, dyspnea, abdominal pain, nausea/vomiting/diarrhea, urinary retention, dysuria, hematuria, loss of control of bowel or bladder, numbness/tingling, saddle anesthesia, muscle paralysis/weakness, or rash. - Related Data Allergies/Adverse Reactions: No Known Allergies Allergy (Verified 07/24/18 10:29) Past Medical History - General Information source: Patient - Social History Smoking Status: Current Some Day Smoker Chew tobacco use (# tins/day): No Frequency of alcohol use: Occasional Drug Abuse: None Family History: CAD Patient has suicidal ideation: No Patient has homicidal ideation: No - Past Medical History Cardiac Medical History: Reports: Hx Congestive Heart Failure, Hx Heart Attack, Hx Hypertension Renal/ Medical History: Denies: Hx Peritoneal Dialysis Psychiatric Medical History: Denies: Hx Depression Past Surgical History: Reports: Hx Cardiac Surgery - pacer/defib, Hx Internal Defibrillator - On 11/22/2025, Hx Urinary Tract Surgery - prostate Review of Systems - Review of Systems -: Yes All other systems reviewed and negative Physical Exam - Vital signs Vitals: Temp Pulse Resp BP Pulse Ox 97.4 F 74 16 148/111 H 98 07/24/18 09:45 07/24/18 09:45 07/24/18 09:45 07/24/18 09:45 07/24/18 09:45 - Notes Notes: PHYSICAL EXAMINATION: GENERAL: Well-appearing, well-nourished and in no acute distress. A&Ox4. Answers questions appropriately. HEAD: Atraumatic, normocephalic. Non-tender. EYES: Pupils equal round and reactive to light, extraocular movements intact, sclera anicteric, conjunctiva are normal. No nystagmus. ENT: EAC clear b/l. TM's intact b/l without erythema, fluid, or perforation. Nares patent and without discharge. oropharynx clear without exudates. No tonsilar hypertrophy or erythema. Moist mucous membranes. No sinus tenderness. No hemotympanum. NECK: Normal range of motion, supple without lymphadenopathy. No rigidity/men ingismus. No midline tenderness. LUNGS: Breath sounds clear to auscultation bilaterally and equal. No wheezes rales or rhonchi. HEART: Regular rate and rhythm without murmurs, rubs, gallops. ABDOMEN: Soft, nontender, nondistended abdomen. No guarding, no rebound. Normal bowel sounds present. No CVA tenderness bilaterally. Musculoskeletal: Ext's b/l: FROM to passive/active. Strength 5+/5. No deficits noted. No bony tenderness of extremities. Extremities: No cyanosis, clubbing, or edema b/l. Peripheral pulses 2+. Capillary refill less than 2 seconds. NEUROLOGICAL: NIH 0. GCS 15. Cranial nerves grossly intact. Normal speech, normal gait. Normal sensory, motor exams. Reflexes 2+ b/l. MODESTA's negative. Pronator drift negative. Heel/barrera, finger/nose wnl. Rhomberg neg. PSYCH: Normal mood, normal affect. SKIN: Warm, Dry, normal turgor, no rashes or lesions noted. Course - Re-evaluation Re-evalutation: 07/24/18 14:[address] Salvador who is in agreement with dispo/plan. Patient is an afebrile, well-hydrated, 53-year-old male who presents with 2 falls prior to arrival, unspecified. Vitals are acceptable without significant tachycardia, tachypnea, or hypoxia. PE is otherwise unremarkable for any focal neurological deficits. Patient is nontoxic-appearing and is tolerating p.o. w ithout difficulty. Patient has been asymptomatic and did not have any correlating symptoms with the falls. His AICD was interrogated which revealed no incidences today. Patient did not have any feeling of 'firing' from his defibrillator. Patient was reevaluated at my last discharge evaluation with him visit with him and he had a second unremarkable neurological exam. Patient is able to ambulate down the hallway without any instability. Romberg was negative. NIH 0, GCS 15, cranial nerves grossly intact. Orthostatics unremarkable. Labs are unremarkable. Patient was given 2 of his blood pressure medications today. He did not take any of his blood pressure medicines prior to arrival. No further work-up warranted at this time. Recheck with your PCM/quality assurance advisor in 2 to 3 days. Return to the ED with any other worsening/concerning symptoms. Patient is in agreement. - Vital Signs Vital signs: Temp Pulse Resp BP Pulse Ox 97.4 F 57 L 16 129/100 H 98 07/24/18 09:45 07/24/18 13:43 07/24/18 09:45 07/24/18 13:43 07/24/18 09:45 - Laboratory Result Diagrams: 07/24/18 11:05 07/24/18 11:05 Laboratory results interpreted by me: 07/24/18 07/24/18 11:05 11:05 WBC 3.9 L RDW 14.5 H BUN 26 H Creatinine 1.88 H Est GFR ( Amer) 46 L Est GFR (Non-Af Amer) 38 L Discharge - Discharge Clinical Impression: Fall Qualifiers: Encounter type: initial encounter Qualified Code(s): W19.XXXA - Unspecified fall, initial encounter Condition: Stable Disposition: HOME, SELF-CARE Additional Instructions: Maintain adequate fluid and food intake Take home medications as directed Healthy diet Monitor blood pressure daily and keep a log Monitor symptoms for any acute changes Recheck with your PCM/cardiology in 2-3 days Return to the ED with any worsening symptoms and/or development of fever, headache, chest pain, palpitations, syncope, shortness of breath, trouble breathing, abdominal pain, n/v/d, blood in stool/urine, loss of control of bowel/bladder, urinary retention, muscle weakness/paralysis, numbness/tingling, or other worsening symptoms that are concerning to you. Forms: Elevated Blood Pressure, Smoking Cessation Education, Return to Work Referrals: LUIS SILVA JR, MD [NO LOCAL MD] - 07/26/18
[2018-07-24] MEDS ORDERED: LISINOPRIL 10 MG TABLET PO ONE (13:56)
[2018-07-24] MEDS ORDERED: FUROSEMIDE 40 MG TABLET PO ONE (13:58)
--- NOTE | 2018-07-24 14:06 | RADIOLOGY REPORT (SQ) ---
EXAM DESCRIPTION: CT HEAD WITHOUT COMPLETED DATE/TIME: 07/24/2018 1:57 pm REASON FOR STUDY: falls x2 COMPARISON: None. TECHNIQUE: Axial images acquired through the brain without intravenous contrast. Images reviewed wi th bone, brain and subdural windows. Additional sagittal and coronal reconstructions were generated. Images stored on PACS. All CT scanners at this facility use dose modulation, iterative reconstruction, and/or weight based d osing when appropriate to reduce radiation dose to as low as reasonably achievable (ALARA). [facility]: Dose Right [facility]: CareDose [facility]: Dose Right [facility]: Teradose 4D [facility]: [employer] RADIATION DOSE: CT Rad equipment meets quality standard of care and radiation dose reduction techniq ues were employed. CTDIvol: 53.2 mGy. DLP: 1124 mGy-cm. mGy. LIMITATIONS: None. FINDINGS: VENTRICLES: Normal size and contour. CEREBRUM: No masses. No hemorrhage. No midline shift. No evidence for acute infarction. Normal gra y/white matter differentiation. No areas of low density in the white matter. CEREBELLUM: No masses. No hemorrhage. No alteration of density. No evidence for acute infarction. EXTRAAXIAL SPACES: No fluid collections. No masses. ORBITS AND GLOBE: No intra- or extraconal masses. Normal contour of globe without masses. CALVARIUM: No fracture. PARANASAL SINUSES: No fluid or mucosal thickening. SOFT TISSUES: No mass or hematoma. OTHER: No other significant finding. IMPRESSION: NORMAL BRAIN CT WITHOUT CONTRAST. EVIDENCE OF ACUTE STROKE: NO. COMMENT: Quality ID # [id number]: Final reports with documentation of one or more dose reduction techniques (e.g., Automated exposure control, adjustment of the mA and/or kV according to patient size, use of iterative reconstruction technique) TECHNICAL DOCUMENTATION: JOB ID: [id number] [employer]- All Rights Reserved Reading location - IP/workstation name: [email or web address]
[2018-07-24 15:04] VITALS: BP 137/89
== END 2018-07-24 15:09 | disposition home or self-care (01) ==
LOC: ER 09:30
DX: Z04.3 Encounter for examination and observation following other accident (principal); I11.0 Hypertensive heart disease with heart failure; I50.9 Heart failure, unspecified; Z95.810 Presence of automatic (implantable) cardiac defibrillator; F17.200 Nicotine dependence, unspecified, uncomplicated; Z79.899 Other long term (current) drug therapy
CPT/HCPCS: 93005; 99285; 36415; 82553; 82550; 85025; 80053; 84484; 71045; 70450; 93010; J3490 ×2

== ENCOUNTER 2018-09-02 12:02 | Emergency (ER) | payer MEDICAID ==
[2018-09-02 12:40] LABS: ABSOLUTE LYMPHOCYTES (AUTO) 1.6 10^3/uL (0.5-4.7); ABSOLUTE MONOCYTES (AUTO) 0.5 10^3/uL (0.1-1.4); ABSOLUTE NEUT (AUTO) 3.1 10^3/uL (1.7-8.2); BASOPHILS % (AUTO) 0.9 % (0-2); EOSINOPHILS % (AUTO) 0.9 % (0-6); HEMATOCRIT 35.6 % (37.9-51.0); HEMOGLOBIN 12.3 g/dL (13.5-17.0); LYMPHOCYTES % (AUTO) 29.1 % (13-45); MEAN CORPUSCULAR HEMOGLOBIN 30.4 pg (27.0-33.4); MEAN CORPUSCULAR HGB CONC 34.4 g/dL (32.0-36.0); MEAN CORPUSCULAR VOLUME 88 fl (80-97); MONOCYTES % (AUTO) 10.3 % (3-13); PLATELET COUNT 163 10^3/uL (150-450); RED BLOOD COUNT 4.04 10^6/uL (4.35-5.55); RED CELL DISTRIBUTION WIDTH 14.1 % (11.5-14.0); SEGMENTED NEUTROPHILS % (AUTO) 58.8 % (42-78); TOTAL CELLS COUNTED % (AUTO) 100 %; WHITE BLOOD COUNT 5.3 10^3/uL (4.0-10.5)
[2018-09-02 13:00] LABS: ALANINE AMINOTRANSFERASE 55 U/L (21-72); ALBUMIN 3.5 g/dL (3.5-5.0); ALKALINE PHOSPHATASE 70 U/L (38-126); ANION GAP 6 (5-19); ASPARTATE AMINO TRANSFERASE 45 U/L (17-59); BILIRUBIN,DIRECT 0.3 mg/dL (0.0-0.4); BILIRUBIN,TOTAL 2.4 mg/dL (0.2-1.3); BLOOD UREA NITROGEN 26 mg/dL (7-20); CALCIUM 8.8 mg/dL (8.4-10.2); CARBON DIOXIDE 31 mmol/L (22-30); CHLORIDE 103 mmol/L (98-107); GLUCOSE 128 mg/dL (75-110); POTASSIUM 4.3 mmol/L (3.6-5.0); SODIUM 140.4 mmol/L (137-145); TOTAL PROTEIN 6.3 g/dL (6.3-8.2)
--- NOTE | 2018-09-02 13:03 | RADIOLOGY REPORT (SQ) ---
EXAM DESCRIPTION: CHEST SINGLE VIEW COMPLETED DATE/TIME: 09/02/2018 12:48 pm REASON FOR STUDY: sob COMPARISON: 07/24/2018 NUMBER OF VIEWS: One view. TECHNIQUE: Single frontal radiographic view of the chest acquired. LIMITATIONS: None. FINDINGS: LUNGS AND PLEURA: No opacities, masses or pneumothorax. No pleural effusion. MEDIASTINUM AND HILAR STRUCTURES: No masses. Contour normal. HEART AND VASCULAR STRUCTURES: Heart enlarged without failure. Normal vasculature. BONES: No acute findings. HARDWARE: Stable position of defibrillator. OTHER: No other significant finding. IMPRESSION: Cardiomegaly. No acute findings. TECHNICAL DOCUMENTATION: JOB ID: [id number] [employer]- All Rights Reserved Reading location - IP/workstation name: [email or web address]
[2018-09-02 14:46] LABS: TROPONIN I 3.8 ng/mL
[2018-09-02] MEDS ORDERED: FUROSEMIDE INJ/PF 20 MG/2 ML SDV IV ONE (15:03)
[2018-09-02] MEDS ORDERED: ASPIRIN 81 MG TABLET, CHEWABLE PO ONE (15:04)
[2018-09-02] MEDS ORDERED: NITROGLYCERIN/D5W 50 MG/250 ML RTUINJ IV PRN (15:04)
--- NOTE | 2018-09-02 15:14 | ER Document Report ---
Addendum entered and electronically signed by KATIE GUEVARA NP 09/03/18 20:33: Course - Re-evaluation Re-evalutation: 09/03/18 20:33 Patient reevaluated as transport team is at the bedside. [facility] transport here to receive patient. Patient remains chest pain-free at this time. He denies any needs at this time. - Vital Signs Vital signs: Temp Pulse Resp BP Pulse Ox 98.2 F 22 H 140/120 H 72 L 09/02/18 12:33 09/03/18 20:16 09/03/18 20:16 09/03/18 20:11 - Laboratory Result Diagrams: 09/03/18 03:05 09/03/18 03:05 Laboratory results interpreted by me: 09/02/18 09/02/18 09/02/18 12:25 12:25 12:25 RBC 4.04 L Hgb 12.3 L Hct 35.6 L RDW 14.1 H Carbon Dioxide 31 H BUN 26 H Creatinine 1.58 H Est GFR ( Amer) 56 L Est GFR (Non-Af Amer) 46 L Glucose 128 H Total Bilirubin 2.4 H NT-Pro-B Natriuret Pep [id number] H 09/03/18 09/03/18 03:05 03:05 RBC 3.79 L Hgb 11.5 L Hct 33.5 L RDW Carbon Dioxide BUN 26 H Creatinine 1.49 H Est GFR ( Amer) Est GFR (Non-Af Amer) 50 L Glucose 147 H Total Bilirubin NT-Pro-B Natriuret Pep Addendum entered and electronically signed by KATIE GUEVARA NP 09/03/18 19:35: Course - Re-evaluation Re-evalutation: 09/03/18 19:34 Patient received a bed assignment at [facility]. There is been no change in patient's status since last course note. Patient remains in stable condition at this time and is resting comfortably without chest pain. Transport should be here at approximately 8 PM to take patient. - Vital Signs Vital signs: Temp Pulse Resp BP Pulse Ox 98.2 F 17 156/108 H 95 09/02/18 12:33 09/03/18 18:06 09/03/18 18:06 09/03/18 18:06 - Laboratory Result Diagrams: 09/03/18 03:05 09/03/18 03:05 Laboratory results interpreted by me: 09/02/18 09/02/18 09/02/18 12:25 12:25 12:25 RBC 4.04 L Hgb 12.3 L Hct 35.6 L RDW 14.1 H Carbon Dioxide 31 H BUN 26 H Creatinine 1.58 H Est GFR ( Amer) 56 L Est GFR (Non-Af Amer) 46 L Glucose 128 H Total Bilirubin 2.4 H NT-Pro-B Natriuret Pep [id number] H 09/03/18 09/03/18 03:05 03:05 RBC 3.79 L Hgb 11.5 L Hct 33.5 L RDW Carbon Dioxide BUN 26 H Creatinine 1.49 H Est GFR ( Amer) Est GFR (Non-Af Amer) 50 L Glucose 147 H Total Bilirubin NT-Pro-B Natriuret Pep Addendum entered and electronically signed by KATIE GUEVARA NP 09/03/18 15:43: Course - Re-evaluation Re-evalutation: 09/03/18 15:41 Have re-rounded on this patient several times throughout the day, he is now having increasing runs of V. tach approximately 2 runs per hour lasting appr oximately 6 seconds per run. I did consult my attending physician, Dr. Gonzalez who recommends adding on magnesium, thyroid studies and giving IV metoprolol. Orders have been placed and labs are pending. I also called and updated [facility] as patient is still pending transfer to their department. Transfer center will relay information to swatch checker and will get back to us for any further information needed or change in bed status. Patient is resting comfortably has had no complaints today no episodes of chest pain and the runs of V. tach were asymptomatic. His vital signs are currently within tolerable ranges, heart rate 87, SPO2 95%, respiratory rate 21, blood pressure 122/90. - Vital Signs Vital signs: Temp Pulse Resp BP Pulse Ox 98.2 F 24 H 132/113 H 89 L 09/02/18 12:33 09/03/18 15:01 09/03/18 15:01 09/03/18 15:01 - Laboratory Result Diagrams: 09/03/18 03:05 09/03/18 03:05 Laboratory results interpreted by me: 09/02/18 09/02/18 09/02/18 12:25 12:25 12:25 RBC 4.04 L Hgb 12.3 L Hct 35.6 L RDW 14.1 H Carbon Dioxide 31 H BUN 26 H Creatinine 1.58 H Est GFR ( Amer) 56 L Est GFR (Non-Af Amer) 46 L Glucose 128 H Total Bilirubin 2.4 H NT-Pro-B Natriuret Pep [id number] H 09/03/18 09/03/18 03:05 03:05 RBC 3.79 L Hgb 11.5 L Hct 33.5 L RDW Carbon Dioxide BUN 26 H Creatinine 1.49 H Est GFR ( Amer) Est GFR (Non-Af Amer) 50 L Glucose 147 H Total Bilirubin NT-Pro-B Natriuret Pep Addendum entered and electronically signed by AYAAN STAHL FNP 09/03/18 05:49: Course - Re-evaluation Re-evalutation: 09/03/18 05:42 I did speak with Dr. Leonardo Delgado with cardiology at [facility] to update him on the patient's status to include discontinuation of the nitro drip as the patient has been pain free all night. I also informed him of the decrease in Troponin. States the patient does need to be transferred for further evaluation of the elevated Troponin but he does not believe the patient requires an ICU bed. He states he will accept the patient for a telemetry bed. [facility] will notify us when a bed is available. I have checked on the patient multiple times throughout the night in which he denies chest pain. Patient states that when he coughs he does have some chest discomfort but this only occurs with cough. Patient has been resting comfortabl y on stretcher. - Vital Signs Vital signs: Temp Pulse Resp BP Pulse Ox 98.2 F 25 H 123/90 H 95 09/02/18 12:33 09/03/18 02:31 09/03/18 02:31 09/03/18 02:31 - Laboratory Result Diagrams: 09/03/18 03:05 09/03/18 03:05 Laboratory results interpreted by me: 09/02/18 09/02/18 09/02/18 12:25 12:25 12:25 RBC 4.04 L Hgb 12.3 L Hct 35.6 L RDW 14.1 H Carbon Dioxide 31 H BUN 26 H Creatinine 1.58 H Est GFR ( Amer) 56 L Est GFR (Non-Af Amer) 46 L Glucose 128 H Total Bilirubin 2.4 H NT-Pro-B Natriuret Pep [id number] H 09/03/18 09/03/18 03:05 03:05 RBC 3.79 L Hgb 11.5 L Hct 33.5 L RDW Carbon Dioxide BUN 26 H Creatinine 1.49 H Est GFR ( Amer) Est GFR (Non-Af Amer) 50 L Glucose 147 H Total Bilirubin NT-Pro-B Natriuret Pep Original Note: ED Cardiac - General Chief Complaint: Chest Pain Stated Complaint: SHORTNESS OF BREATH Time Seen by Provider: 09/02/18 13:33 Mode of Arrival: Medic Information source: Patient Notes: Patient is a 53-year-old male presenting to the emergency department from the [facility] with complaints of chest pain shortness of breath. Patient reports symptoms began 3 days ago. He reports the chest pain is in the middle and left side of his chest and feels similar to when he had a heart attack several years ago. He also reports severe dyspnea on exertion with worsening when lying down. Patient does have a history of CHF and states this feels similar to a CHF exacerbation. Patient has past medical history of VT x2, CHF, CAD, hypertension, hyperlipidemia. He reports he takes blood pressure medications and Lasix at the [facility] senior living. Patient denies any nausea, vomiting or diaphoresis. At the time of arrival patient is currently chest pain-free however he reports he had chest pain approximately 30 minutes ago. TRAVEL OUTSIDE OF THE [place] IN LAST 30 DAYS: No - Related Data Allergies/Adverse Reactions: No Known Allergies Allergy (Verified 07/24/18 10:29) Past Medical History - General Information source: Patient - Social History Smoking Status: Current Some Day Smoker Family History: CAD Patient has suicidal ideation: No Patient has homicidal ideation: No - Past Medical History Cardiac Medical History: Reports: Hx Congestive Heart Failure, Hx Heart Attack - x2, Hx Hypertension Renal/ Medical History: Denies: Hx Peritoneal Dialysis Psychiatric Medical History: Denies: Hx Depression Past Surgical History: Reports: Hx Cardiac Surgery - pacer/defib, Hx Internal Defibrillator - On 11/22/2025, Hx Urinary Tract Surgery - prostate Review of Systems - Review of Systems Constitutional: denies: Fever, Malaise EENT: No symptoms reported Cardiovascular: Chest pain, Orthopnea, Dyspnea Respiratory: Cough Gastrointestinal: No symptoms reported Genitourinary: No symptoms reported Male Genitourinary: No symptoms reported Musculoskeletal: No symptoms reported Skin: No symptoms reported Hematologic/Lymphatic: No symptoms reported Neurological/Psychological: No symptoms reported Physical Exam - Vital signs Vitals: Pulse Ox 97 09/02/18 12:29 - Notes Notes: PHYSICAL EXAMINATION: GENERAL: Well-appearing, well-nourished and in no acute distress. HEAD: Atraumatic, normocephalic. EYES: Pupils equal round and reactive to light, extraocular movements intact, sclera anicteric, conjunctiva are normal. ENT: Nares patent, oropharynx clear without exudates. Moist mucous membranes. NECK: Normal range of motion, supple without lymphadenopathy LUNGS: Breath sounds clear to auscultation bilaterally and equal. No wheezes rales or rhonchi. HEART: Regular rate and rhythm without murmurs ABDOMEN: Soft, nontender, nondistended abdomen. No guarding, no rebound. No masses appreciated. Musculoskeletal: Normal range of motion, no pitting or edema. No cyanosis. NEUROLOGICAL: Cranial nerves grossly intact. Normal speech, normal gait. Normal sensory, motor exams PSYCH: Normal mood, normal affect. SKIN: Warm, Dry, normal turgor, no rashes or lesions noted. Course - Re-evaluation Re-evalutation: Chest x-ray shows cardiomegaly but no obvious pulmonary vascular congestion. EKG was reviewed and interpreted by me, shows a sinus rhythm, rate of 78, QTc 470, there are abnormal T waves in the lateral leads but this is unchanged from previous EKG on file from 07/24/2018. Initial troponin is 3.8, BNP is 14,100. Discussed case with attending physician, Dr. Chan, orders placed for aspirin, nitroglycerin drip and IV Lasix. Call placed to [facility] for transfer to a tertiary facility. Patient up-to-date on plan of care. Patient remains chest pain-free at this time. Vital signs are currently within normal limits other than diastolic hypertension. Patient was accepted for admission by Dr. Beth Cleveland, swatch checker at [facility]. We went over patient's current status as well as current orders and she has no new recommendations. Patient will be transported once a bed comes available, there may be a delay on this. She has instructed us to call with any changes in patient's status and then patient could possibly be upgraded or downgraded from that point. Repeat troponin 3.690. Nitro drip is infusing at 5 mcg. Patient continues to be chest pain-free. Currently awaiting bed placement at [facility]. Bedside handoff will be done with richi Ryder. - Vital Signs Vital signs: Temp Pulse Resp BP Pulse Ox 98.2 F 15 133/104 H 95 09/02/18 12:33 09/02/18 20:46 09/02/18 20:46 09/02/18 20:46 - Laboratory Result Diagrams: 09/02/18 12:25 09/02/18 12:25 Laboratory results interpreted by me: 09/02/18 09/02/18 09/02/18 12:25 12:25 12:25 RBC 4.04 L Hgb 12.3 L Hct 35.6 L RDW 14.1 H Carbon Dioxide 31 H BUN 26 H Creatinine 1.58 H Est GFR ( Amer) 56 L Est GFR (Non-Af Amer) 46 L Glucose 128 H Total Bilirubin 2.4 H NT-Pro-B Natriuret Pep [id number] H Discharge - Discharge Clinical Impression: NSTEMI (non-ST elevated myocardial infarction) CHF exacerbation Qualifiers: Heart failure type: unspecified Qualified Code(s): I50.9 - Heart failure, unspecified Condition: Stable Disposition: [facility]
[2018-09-02 17:52] LABS: URINE AMPHETAMINES SCREEN NEGATIVE; URINE BARBITURATES SCREEN NEGATIVE; URINE BENZODIAZEPINES SCREEN NEGATIVE; URINE COCAINE SCREEN NEGATIVE; URINE MARIJUANA (THC) SCREEN NEGATIVE; URINE METHADONE SCREEN NEGATIVE; URINE PHENCYCLIDINE SCREEN NEGATIVE
[2018-09-02] MEDS ORDERED: ACETAMINOPHEN 325 MG TABLET PO ONE (22:32)
--- NOTE | 2018-09-03 00:23 | EKG REPORT ---
SEVERITY:- ABNORMAL ECG - SINUS RHYTHM MULTIPLE VENTRICULAR PREMATURE COMPLEXES PROBABLE LEFT ATRIAL ABNORMALITY LVH WITH SECONDARY REPOLARIZATION ABNORMALITY ABNORMAL T, PROBABLE ISCHEMIA, LATERAL LEADS : Confirmed by: Raul Sherwood 03-Sep-2018 00:22:32
[2018-09-03 03:23] LABS: HEMATOCRIT 33.5 % (37.9-51.0); HEMOGLOBIN 11.5 g/dL (13.5-17.0); MEAN CORPUSCULAR HEMOGLOBIN 30.3 pg (27.0-33.4); MEAN CORPUSCULAR HGB CONC 34.3 g/dL (32.0-36.0); MEAN CORPUSCULAR VOLUME 89 fl (80-97); PLATELET COUNT 170 10^3/uL (150-450); RED BLOOD COUNT 3.79 10^6/uL (4.35-5.55); RED CELL DISTRIBUTION WIDTH 13.8 % (11.5-14.0); WHITE BLOOD COUNT 4.9 10^3/uL (4.0-10.5)
[2018-09-03 03:33] LABS: ANION GAP 5 (5-19); BLOOD UREA NITROGEN 26 mg/dL (7-20); CALCIUM 8.4 mg/dL (8.4-10.2); CARBON DIOXIDE 28 mmol/L (22-30); CHLORIDE 106 mmol/L (98-107); GLUCOSE 147 mg/dL (75-110); POTASSIUM 3.6 mmol/L (3.6-5.0); SODIUM 139.4 mmol/L (137-145)
[2018-09-03] MEDS ORDERED: ACETAMINOPHEN 325 MG TABLET PO ONE (06:21)
[2018-09-03] MEDS ORDERED: METOPROLOL TARTRATE PF/INJ 5 MG/5 ML SDV IV ONE (14:52)
[2018-09-03 16:29] LABS: FREE T4 (FREE THYROXINE) 1.24 ng/dL (0.78-2.19)
[2018-09-03 16:43] LABS: THYROID STIMULATING HORMONE 1.61 uIU/mL (0.47-4.68)
[2018-09-03 20:39] VITALS: BP 143/118
== END 2018-09-03 20:42 | disposition short-term general hospital (02) ==
LOC: ER 12:02
DX: I21.4 Non-ST elevation (NSTEMI) myocardial infarction (principal); I50.9 Heart failure, unspecified; R06.02 Shortness of breath; I25.2 Old myocardial infarction; I11.0 Hypertensive heart disease with heart failure; F17.200 Nicotine dependence, unspecified, uncomplicated; Z95.810 Presence of automatic (implantable) cardiac defibrillator
CPT/HCPCS: 93005; 99285; 96375; 96365; 96366; 36415; 84439; 83735; 84443; 85025; 85027; 80048; 80053; 84484; 80307; 83880; 71045; 93010; J3490 ×4; J1940